=== PATIENT | female | born 1995 | race Caucasian/White ===

== ENCOUNTER 2016-09-07 14:51 | Emergency (ER) | payer MEDICAID, OTHER ==
[2016-09-07] MEDS ORDERED: HYDROcod/ACETAM 5/325 MG TABLET PO STA (15:22)
[2016-09-07] MEDS ORDERED: HYDROcod/ACETAM 5/325 MG TABLET ONE (15:28)
== END 2016-09-07 15:39 | disposition home or self-care (01) ==
DX: K05.20 Aggressive periodontitis, unspecified (principal); F17.200 Nicotine dependence, unspecified, uncomplicated
CPT/HCPCS: 99283; A9270

== ENCOUNTER 2016-09-14 09:31 | Emergency (ER) | payer MEDICAID | END 2016-09-14 11:23 | disposition home or self-care (01) | DX: J40 Bronchitis, not specified as acute or chronic (principal); Z87.09 Personal history of other diseases of the respiratory system; F17.200 Nicotine dependence, unspecified, uncomplicated ==

== ENCOUNTER 2016-11-19 02:02 | Emergency (ER) | payer MEDICAID ==
[2016-11-19] MEDS ORDERED: IBUPROFEN 600 MG TABLET PO STA (02:19)
[2016-11-19] MEDS ORDERED: AMOXICILLIN 250 MG CAPSULE PO STA (02:19)
[2016-11-19] MEDS ORDERED: AMOXICILLIN 250 MG CAPSULE PO ONE (02:20)
[2016-11-19] MEDS ORDERED: IBUPROFEN 600 MG TABLET PO ONE (02:20)
== END 2016-11-19 03:32 | disposition home or self-care (01) ==
DX: H66.93 Otitis media, unspecified, bilateral (principal); R04.2 Hemoptysis; F17.200 Nicotine dependence, unspecified, uncomplicated; Z79.2 Long term (current) use of antibiotics; Z79.51 Long term (current) use of inhaled steroids; Z79.899 Other long term (current) drug therapy
CPT/HCPCS: 71020; 99283; A9270

== ENCOUNTER 2016-12-31 10:27 | Outpatient (CLI) | payer MEDICAID ==
[2016-12-31 12:44] LABS: BASOPHILS # (AUTO) 0.1 10^3/uL (0.0-0.1); BASOPHILS % (AUTO) 0.5 %; EOSINOPHILS # (AUTO) 0.1 10^3/uL (0.0-0.7); EOSINOPHILS % (AUTO) 1.3 %; HCT - HEMATOCRIT 41.9 % (37.0-47.0); HGB - HEMOGLOBIN 14.1 g/dL (12.0-16.0); LYMPHOCYTES # (AUTO) 3.3 10^3/uL (1.5-3.5); MEAN CORPUSCULAR HEMOGLOBIN 32.1 pg (27.0-31.0); MEAN CORPUSCULAR HGB CONC 33.7 g/dL (32.0-36.0); MEAN CORPUSCULAR VOLUME 95.2 fL (81.0-99.0); MEAN PLATELET VOLUME 8.7 fL (7.9-10.8); MONOCYTES # (AUTO) 0.5 10^3/uL (0.0-1.0); MONOCYTES % (AUTO) 4.7 %; NEUTROPHILS # (AUTO) 7.7 10^3/uL (1.5-6.6); NEUTROPHILS % (AUTO) 65.5 %; RED CELL DISTRIBUTION WIDTH 13.1 % (12.0-15.0); UNCORRECTED WHITE BLOOD COUNT 11.7 x10^3/uL; WHITE BLOOD COUNT 11.7 x10^3/uL (4.8-10.8)
[2016-12-31 13:20] LABS: ALBUMIN/GLOBULIN RATIO 1.5 (1.0-2.2); BILIRUBIN,TOTAL 0.5 mg/dL (0.2-1.0); BUN - BLOOD UREA NITROGEN 8 mg/dL (6-20); CALCIUM 9.2 mg/dL (8.5-10.3); CARBON DIOXIDE - CO2 24 mmol/L (21-32); CHLORIDE 108 mmol/L (101-111); CHOL/HDL RATIO 4.3 (<4.4); CHOLESTEROL 164 mg/dL; CREATININE 0.7 mg/dL (0.4-1.0); GFR - MDRD 105 (>89); GLUCOSE 92 mg/dL (70-100); HDL CHOLESTEROL 38 mg/dL; LDL/HDL RATIO 2.9 (<4.4); POTASSIUM 4.1 mmol/L (3.5-5.0); SODIUM 136 mmol/L (135-145); TOTAL PROTEIN 7.1 g/dL (6.7-8.2); TRIGLYCERIDES 72 mg/dL; VLDL CHOLESTEROL 14 mg/dL
== END 2016-12-31 10:28 ==
LOC: LAB.N 10:27
PROVIDERS: ATTEND Family Medicine
DX: Z00.00 Encounter for general adult medical examination without abnormal findings (principal)
CPT/HCPCS: 36415; 80050; 80061

== ENCOUNTER 2017-08-31 10:44 | Outpatient (CLI) | payer MEDICAID ==
--- NOTE | 2017-08-31 11:57 | XRAY Report ---
DATE OF SERVICE: 08/31/2017 TWO VIEW CHEST: 08/31/2017 CLINICAL INDICATION: History of tuberculosis. COMPARISON: 11/19/2016. FINDINGS: Frontal and lateral views of the chest demonstrate a normal cardiac silhouette. The lungs are clear. No effusion or pneumothorax is present. IMPRESSION: NORMAL CHEST. NO EVIDENCE OF ACTIVE TUBERCULOSIS. TD: 08/31/2017 11:57
== END 2017-08-31 10:45 | disposition home or self-care (01) ==
LOC: DI 10:44
PROVIDERS: ATTEND Physician Assistant Medical
DX: Z86.11 Personal history of tuberculosis (principal)
CPT/HCPCS: 71046

== ENCOUNTER 2017-12-23 09:37 | Outpatient (CLI) | payer MEDICAID ==
[2017-12-23 12:42] LABS: BASOPHILS % (AUTO) 0.4 %; EOSINOPHILS % (AUTO) 0.4 %; HGB - HEMOGLOBIN 14.9 g/dL (12.0-16.0); LYMPHOCYTES # (AUTO) 2.2 10^3/uL (1.5-3.5); LYMPHOCYTES % (AUTO) 24.3 %; MEAN CORPUSCULAR HEMOGLOBIN 32.7 pg (27.0-31.0); MEAN CORPUSCULAR HGB CONC 34.8 g/dL (32.0-36.0); MEAN CORPUSCULAR VOLUME 93.9 fL (81.0-99.0); MEAN PLATELET VOLUME 8.9 fL (7.9-10.8); MONOCYTES # (AUTO) 0.8 10^3/uL (0.0-1.0); MONOCYTES % (AUTO) 8.7 %; NEUTROPHILS # (AUTO) 6.1 10^3/uL (1.5-6.6); NEUTROPHILS % (AUTO) 66.2 %; PLT - PLATELET COUNT 221 10^3/uL (130-450); RED BLOOD COUNT 4.56 10^6/uL (4.20-5.40); RED CELL DISTRIBUTION WIDTH 12.5 % (12.0-15.0); WHITE BLOOD COUNT 9.2 x10^3/uL (4.8-10.8)
[2017-12-23 13:01] LABS: ALBUMIN 4.4 g/dL (3.2-5.5); ALBUMIN/GLOBULIN RATIO 1.3 (1.0-2.2); BILIRUBIN,TOTAL 1.3 mg/dL (0.2-1.0); CALCIUM 9.2 mg/dL (8.5-10.3); CREATININE 0.7 mg/dL (0.4-1.0); TOTAL PROTEIN 7.8 g/dL (6.7-8.2)
[2017-12-23 13:14] LABS: THYROID STIMULATING HORMONE 1.8 uIU/mL (0.34-5.60)
[2017-12-23 13:16] LABS: FREE T4 (FREE THYROXINE) 0.93 ng/dL (0.58-1.64)
== END 2017-12-23 09:38 ==
LOC: LAB.N 09:37
PROVIDERS: ATTEND Family Medicine
DX: R53.83 Other fatigue (principal); F33.0 Major depressive disorder, recurrent, mild
CPT/HCPCS: 36415; 80050; 84439

== ENCOUNTER 2017-12-26 14:07 | Emergency (ER) | payer MEDICAID ==
[2017-12-26 15:22] LABS: BILIRUBIN,URINE NEGATIVE (NEGATIVE); GLUCOSE, URINE (UA) NEGATIVE (NEGATIVE); KETONES,URINE (UA) NEGATIVE (NEGATIVE); LEUKOCYTE ESTERASE, URINE NEGATIVE (NEGATIVE); NITRITE,URINE NEGATIVE (NEGATIVE); OCCULT BLOOD,URINE NEGATIVE (NEGATIVE); PROTEIN,URINE NEGATIVE (NEGATIVE); UROBILINOGEN,URINE 0.2 (NORMAL) E.U./dL (NORMAL)
[2017-12-26 15:23] LABS: CLARITY,URINE CLEAR (CLEAR); HCG UR QUAL NEGATIVE
--- NOTE | 2017-12-26 15:53 | ED Physician Documentation ---
History of Present Illness - Stated complaint Stated Complaint: LT SIDE PX - Chief complaint Chief Complaint: Abd Pain - Additonal information Additional information: hx from pt 22 female denies preg has implanted control but thinks it is outdated heavy vag bleed (3 tampons a day) and pelvic cramping like severe menstruation pain, L > R for a month used to be seen at [facility] but no longer on parents [employer] at [facility] Review of Systems GI: reports: Abdominal Pain : reports: Vaginal bleeding. 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 : None HEENT: None Psych: ADD/ADHD Musculoskeletal: None Derm: None - Past Surgical History Past Surgical History: No - Present Medications Home Medications: Ambulatory Orders Medication Instructions Recorded Confirmed Albuterol Sulfate [Proair Hfa 2 puffs IH QID #1 hfa.aer.ad 09/14/16 Inhaler] Azithromycin [Zithromax] 250 mg PO DAILY #6 tablet 09/14/16 Dexamethasone [Decadron] 4 mg PO DAILY #5 tablet 09/14/16 guaiFENesin/CODEINE [Robitussin AC] 10 ml PO Q6H PRN #240 ml 09/14/16 Amoxicillin 1,000 mg PO TID #42 cap 11/19/16 - Allergies Allergies/Adverse Reactions: Allergies Allergy/AdvReac Type Severity Reaction Status Date / Time No Known Drug Allergies Allergy Verified 12/26/17 14:30 - Social History Does the pt smoke?: Yes Smoking Status: Current every day smoker Does the pt drink ETOH?: Yes Does the pt have substance abuse?: No - Immunizations Immunizations are current?: Yes - POLST Patient has POLST: No PD ED PE NORMAL - Vitals Vital signs reviewed: Yes - Cardiac Cardiac: RRR - Respiratory Respiratory: No respiratory distress, Clear bilaterally - Abdomen Abdomen: Soft, Other (midl TTP lower abd L > R no rebound or guarding) - Female Female : Other (pt declined) - Derm Derm: Normal color Results - Vitals Vitals: Vital Signs - 24 hr 12/26/17 14:28 Temperature 36.5 C Heart Rate 90 Respiratory 18 Rate Blood Pressure 133/80 H O2 Saturation 99 Oxygen O2 Source Room air - Labs Labs: Laboratory Tests 12/26/17 14:57 Urine Color YELLOW Urine Clarity CLEAR Urine pH 7.0 Ur Specific [place] 1.020 Urine Protein NEGATIVE Urine Glucose (UA) NEGATIVE Urine Ketones NEGATIVE Urine Occult Blood NEGATIVE Urine Nitrite NEGATIVE Urine Bilirubin NEGATIVE Urine Urobilinogen 0.2 (NORMAL) Ur Leukocyte Esterase NEGATIVE Ur Microscopic Review NOT INDICATED Urine Culture Comments NOT INDICATED Urine HCG, Qual NEGATIVE Departure - Departure Disposition: 01 Home, Self Care Clinical Impression: Dysfunctional uterine bleeding Condition: Good Instructions: ED Bleed Irregular Vaginal Follow-Up: Andres Oliveira MD [Primary Care Provider] - Bella Becerra DO [Provider Admit Priv/Credential] - Comments: The test came back negative. You advises that you are not at risk for STDs We considered doing a sonogram to look for ovarian cysts etc but you did not have enough time today I suspect that the symptoms are due to dysfunctional uterine bleeding as the effect of you outdated control implant wears of Please follow up with the [facility] Return to the ER if worse
[2017-12-26 15:57] VITALS: BP 127/90
== END 2017-12-26 15:58 | disposition home or self-care (01) ==
LOC: ED 14:07
DX: N93.8 Other specified abnormal uterine and vaginal bleeding (principal); F17.200 Nicotine dependence, unspecified, uncomplicated
CPT/HCPCS: 81001; 81003; 81025; 87086; 99282; 99283

== ENCOUNTER → 2018-01-07 | Outpatient (CLI) | payer MEDICAID | LOC: RT.N 10:19 | PROVIDERS: ATTEND Family Medicine | DX: R00.0 Tachycardia, unspecified (principal); F41.1 Generalized anxiety disorder | CPT/HCPCS: 93005 ==

== ENCOUNTER 2018-02-13 03:29 | Emergency (ER) | payer MEDICAID ==
--- NOTE | 2018-02-13 04:09 | ED Physician Documentation ---
PD HPI HEADACHE - Stated complaint Stated Complaint: HEADACHE - Chief complaint Chief Complaint: General - History obtained from History obtained from: Patient - History of Present Illness Timing - onset: Enter time (23:00), Last night Timing - duration: Hours Timing - details: Abrupt onset, Waxing and waning Pain level now: 8 Worst headache ever?: No: Worst headache ever? Location: Global Quality: Throbbing Associated symptoms: Nausea. 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 denies: Loss of vision, Decreased vision GI: reports: Nausea. denies: Abdominal Pain, Vomiting Neurologic: reports: Headache. 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 : None HEENT: None Psych: ADD/ADHD Musculoskeletal: None Derm: None - Past Surgical History Past Surgical History: No - Present Medications Home Medications: Ambulatory Orders Medication Instructions Recorded Confirmed Albuterol Sulfate [Proair Hfa 2 puffs IH QID #1 hfa.aer.ad 09/14/16 Inhaler] Azithromycin [Zithromax] 250 mg PO DAILY #6 tablet 09/14/16 Dexamethasone [Decadron] 4 mg PO DAILY #5 tablet 09/14/16 guaiFENesin/CODEINE [Robitussin AC] 10 ml PO Q6H PRN #240 ml 09/14/16 Amoxicillin 1,000 mg PO TID #42 cap 11/19/16 Ondansetron Odt [Zofran] 4 mg TL Q6H PRN #14 tablet 02/13/18 - Allergies Allergies/Adverse Reactions: Allergies Allergy/AdvReac Type Severity Reaction Status Date / Time No Known Drug Allergies Allergy Verified 02/13/18 03:43 - Social History Does the pt smoke?: Yes Smoking Status: Current every day smoker Does the pt drink ETOH?: Yes Does the pt have substance abuse?: No - Immunizations Immunizations are current?: Yes - POLST Patient has POLST: No PD ED PE NORMAL - Vitals Vital signs reviewed: Yes - General General: Alert and oriented X 3, No acute distress, Well developed/nourished - HEENT HEENT: PERRL, EOMI, Moist mucous membranes - Neck Neck: Supple, no meningeal sign - Neuro Neuro: Alert and oriented X 3, dietary services manager 2-12 intact, No motor deficit, No sensory deficit, Normal speech Eye Opening: Spontaneous Motor: Obeys Commands Verbal: Oriented GCS Score: 15 Results - Vitals Vitals: Vital Signs - 24 hr 02/13/18 02/13/18 02/13/18 03:41 05:20 06:00 Temperature 36.8 C Heart Rate 85 75 Respiratory 17 16 16 Rate Blood Pressure 141/98 H 143/94 H O2 Saturation 96 99 Oxygen O2 Source Room air - Labs Labs: Laboratory Tests 02/13/18 03:40 Ur Specific [place] 1.015 Urine HCG, Qual NEGATIVE PD MEDICAL DECISION MAKING - ED course Complexity details: re-evaluated patient, considered differential, d/w patient ED course: reported minimal improvement after 6mg SQ Imitrex. she requests excedrin, as this typically worked in the past. do not have this medication here, but give tylenol and aspirin, zofran for nausea. she is comfortable being discharged after receiving these meds and reported she had further improvement shortly after they were given - Sepsis Event Vital Signs: Vital Signs - 24 hr 02/13/18 02/13/18 02/13/18 03:41 05:20 06:00 Temperature 36.8 C Heart Rate 85 75 Respiratory 17 16 16 Rate Blood Pressure 141/98 H 143/94 H O2 Saturation 96 99 Oxygen O2 Source Room air Departure - Departure Disposition: 01 Home, Self Care Clinical Impression: Migraine Condition: Good Instructions: ED Headache Migraine Follow-Up: Andres Oliveira MD [Primary Care Provider] - Prescriptions: Ondansetron Odt [Zofran] 4 mg TL Q6H PRN #14 tablet PRN Reason: Nausea / Vomiting Discharge Date/Time: 02/13/18 06:00
[2018-02-13 04:34] LABS: HCG UR QUAL NEGATIVE
[2018-02-13] MEDS: SUMAtriptan 6 MG/0.5 ML VIAL SUBQ STA (04:45)
[2018-02-13 05:22] VITALS: BP 143/94
[2018-02-13] MEDS: ACETAMINOPHEN 325 MG TABLET PO STA ×2 (06:07→06:10)
[2018-02-13] MEDS: ASPIRIN CHEW 81 MG TABLET PO STA (06:07)
[2018-02-13] MEDS: ONDANSETRON ODT 4 MG TABLET TL STA (06:07)
== END 2018-02-13 06:00 | disposition home or self-care (01) ==
LOC: ED 03:29
DX: G43.909 Migraine, unspecified, not intractable, without status migrainosus (principal); F17.200 Nicotine dependence, unspecified, uncomplicated
CPT/HCPCS: 81025; 96372; 99283; 99284; A9270; Q0162

== ENCOUNTER 2018-04-30 10:13 | Emergency (ER) | payer MEDICAID ==
[2018-04-30 10:33] VITALS: BP 122/81
[2018-04-30 10:40] LABS: BILIRUBIN,URINE NEGATIVE (NEGATIVE); GLUCOSE, URINE (UA) NEGATIVE (NEGATIVE); KETONES,URINE (UA) NEGATIVE (NEGATIVE); LEUKOCYTE ESTERASE, URINE NEGATIVE (NEGATIVE); NITRITE,URINE NEGATIVE (NEGATIVE); OCCULT BLOOD,URINE NEGATIVE (NEGATIVE); PROTEIN,URINE NEGATIVE (NEGATIVE); UROBILINOGEN,URINE 0.2 (NORMAL) E.U./dL (NORMAL)
[2018-04-30 10:41] LABS: CLARITY,URINE CLEAR (CLEAR)
[2018-04-30 10:44] LABS: HCG UR QUAL NEGATIVE
--- NOTE | 2018-04-30 11:24 | XRAY Report ---
Reason: TB screen Procedure Date: 04/30/2018 Accession Number: [id number] / [id number] Procedure: XR - Chest 2 View X-Ray CPT Code: 69365 FULL RESULT: EXAM: CHEST RADIOGRAPHY EXAM DATE: 04/30/2018 11:09 AM. CLINICAL HISTORY: TB screen. COMPARISON: CHEST 2 VIEW 08/31/2017 10:49 AM. TECHNIQUE: 2 views. FINDINGS: Lungs/Pleura: No focal opacities evident. No pleural effusion. No pneumothorax. Normal volumes. Mediastinum: Heart and mediastinal contours are unremarkable. Other: None. IMPRESSION: Normal 2-view chest radiography for age and body habitus. Specifically, there is no radiographically apparent evidence of tuberculosis in the chest. RADIA
--- NOTE | 2018-04-30 11:26 | ED Physician Documentation ---
History of Present Illness - Stated complaint Stated Complaint: TB SCREENING - Chief complaint Chief Complaint: General - History obtained from History obtained from: Patient - History of Present Illness Timing: Today - Additonal information Additional information: 22 y/o well female has come to the ED for a CXR to document absence of signs of TB Review of Systems Constitutional: denies: Fever Eyes: denies: Decreased vision Ears: denies: Ear pain Nose: denies: Rhinorrhea / runny nose, Congestion Throat: denies: Sore throat Cardiac: denies: Chest pain / pressure, Palpitations Respiratory: reports: Cough. 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 : None HEENT: None Psych: ADD/ADHD Musculoskeletal: None Derm: None - Past Surgical History Past Surgical History: No - Present Medications Home Medications: Ambulatory Orders Medication Instructions Recorded Confirmed Albuterol Sulfate [Proair Hfa 2 puffs IH QID #1 hfa.aer.ad 09/14/16 Inhaler] Azithromycin [Zithromax] 250 mg PO DAILY #6 tablet 09/14/16 Dexamethasone [Decadron] 4 mg PO DAILY #5 tablet 09/14/16 guaiFENesin/CODEINE [Robitussin AC] 10 ml PO Q6H PRN #240 ml 09/14/16 Amoxicillin 1,000 mg PO TID #42 cap 11/19/16 Ondansetron Odt [Zofran] 4 mg TL Q6H PRN #14 tablet 02/13/18 - Allergies Allergies/Adverse Reactions: Allergies Allergy/AdvReac Type Severity Reaction Status Date / Time No Known Drug Allergies Allergy Verified 02/13/18 03:43 - Social History Does the pt smoke?: Yes Smoking Status: Current every day smoker Does the pt drink ETOH?: Yes Does the pt have substance abuse?: No - Immunizations Immunizations are current?: Yes - POLST Patient has POLST: No PD ED PE NORMAL - Vitals Vital signs reviewed: Yes (hypertensive mild ) - General General: Alert and oriented X 3, No acute distress, Well developed/nourished - HEENT HEENT: Atraumatic, PERRL, EOMI, Ears normal, Moist mucous membranes, Pharynx benign, Dentition benign - Neck Neck: Supple, no meningeal sign, No bony TTP - Cardiac Cardiac: RRR, No murmur - Respiratory Respiratory: No respiratory distress, Clear bilaterally - Abdomen Abdomen: Soft, Non tender - Back Back: No CVA TTP, No spinal TTP - Derm Derm: Normal color, Warm and dry, No rash - Extremities Extremities: No deformity, No edema - Neuro Neuro: Alert and oriented X 3, well drill 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 2-12 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, No motor deficit, No sensory deficit Eye Opening: Spontaneous Motor: Obeys Commands Verbal: Oriented GCS Score: 15 - Psych Psych: Normal mood, Normal affect Results - Vitals Vitals: Vital Signs - 24 hr 04/30/18 10:28 Temperature 36.9 C Heart Rate 95 Respiratory 16 Rate Blood Pressure 122/81 H O2 Saturation 99 Oxygen O2 Source Room air - Labs Labs: Laboratory Tests 04/30/18 10:34 Urine Color YELLOW Urine Clarity CLEAR Urine pH 7.0 Ur Specific [place] 1.020 Urine Protein NEGATIVE Urine Glucose (UA) NEGATIVE Urine Ketones NEGATIVE Urine Occult Blood NEGATIVE Urine Nitrite NEGATIVE Urine Bilirubin NEGATIVE Urine Urobilinogen 0.2 (NORMAL) Ur Leukocyte Esterase NEGATIVE Ur Microscopic Review NOT INDICATED Urine Culture Comments NOT INDICATED Urine HCG, Qual NEGATIVE - Rads (name of study) 2 view chest Radiology: Prelim report reviewed (Impression: Normal two-view chest radiography for age and body habitus. Specifically, there is no radiographically apparent evidence of tuberculosis in the chest.), EMP read indepedently, See rad report PD MEDICAL DECISION MAKING - ED course Complexity details: reviewed results, re-evaluated patient, considered differential, d/w patient, d/w family ED course: 22 y/o well female with no evidence of TB on plain film. - Sepsis Event Vital Signs: Vital Signs - 24 hr 04/30/18 10:28 Temperature 36.9 C Heart Rate 95 Respiratory 16 Rate Blood Pressure 122/81 H O2 Saturation 99 Oxygen O2 Source Room air Departure - Departure Disposition: 01 Home, Self Care Clinical Impression: Well adult exam Condition: Stable Instructions: TB Screening Skin Follow-Up: Andres Oliveira MD [Primary Care Provider] - Comments: Today there is no evidence of TB on your chest X-ray.
== END 2018-04-30 11:43 | disposition home or self-care (01) ==
LOC: ED 10:13
DX: R05 Cough (principal); Z86.11 Personal history of tuberculosis; F17.200 Nicotine dependence, unspecified, uncomplicated
CPT/HCPCS: 71046; 81001; 81003; 81025; 87086; 99282; 99283

== ENCOUNTER 2018-11-03 05:20 | Outpatient (CLI) | payer MEDICAID ==
--- NOTE | 2018-11-03 17:41 | Ultrasound Report ---
Reason: TEST POSITIVE Procedure Date: 11/03/2018 Accession Number: [id number] / [id number] Procedure: US - OB First Trimester CPT Code: FULL RESULT: EXAM: FIRST TRIMESTER OBSTETRIC ULTRASOUND (Less than 11 weeks) EXAM DATE: 11/03/2018 CLINICAL HISTORY: TEST POSITIVE. LMP: 09/23/2018, possibly. COMPARISONS: None. TECHNIQUE: Transabdominal and transvaginal ultrasound examination with static image documentation. CLINICAL DATES: EGA 5 weeks 6 days with VICTOR M 06/30/2019 based on LMP. ASSESSMENT: Gestational Sac: Single intrauterine gestational sac with a mean sac diameter of 7.8 mm corresponds to an estimated gestational age of 4 weeks 5 days with an VICTOR M of 07/07/2019. Embryo: none. Cardiac activity: none. Yolk sac: 1.8 mm, normal. Amniotic fluid: Not applicable. Early placenta: Not applicable. Other: None. MATERNAL STRUCTURES: Uterus: Anteverted. Unremarkable. Cervix: Incidental nabothian cyst noted. No mass. Right Ovary/Adnexa: Unremarkable. The ovary measures 3.9 x 2.7 x 1.3 cm, volume 7.1 cc. Left Ovary/Adnexa: Unremarkable. The ovary measures 3.8 x 1.7 x 2.5 cm, volume 8.4 cc. Free Fluid: Small amount of fluid near the right ovary is noted. Other: None. IMPRESSION: 1. Single intrauterine gestational sac. Based on a mean sac diameter, estimated gestational age is 4 weeks 5 days with an VICTOR M of 07/07/2019. These dates are discordant with dates based upon LMP. Recommend reassigning VICTOR M based on current ultrasound. Recommend follow-up ultrasound to evaluate progression of the . 2. No concerning adnexal lesions. 3. No abnormality explaining the patient's symptoms. RADIA
== END 2018-11-03 05:21 | disposition home or self-care (01) ==
LOC: DI 05:20
PROVIDERS: ATTEND Obstetrics & Gynecology
DX: Z32.01 Encounter for pregnancy test, result positive (principal)
CPT/HCPCS: 76801; 76817

== ENCOUNTER 2018-11-06 12:28 | Outpatient (CLI) | payer MEDICAID | END 2018-11-06 12:29 | disposition home or self-care (01) | LOC: LAB 12:28 | PROVIDERS: ATTEND Obstetrics & Gynecology | DX: O20.0 Threatened abortion (principal) | CPT/HCPCS: 36415; 84702; 86900; 86901 ==

== ENCOUNTER 2018-11-07 03:03 | Emergency (ER) | payer MEDICAID ==
--- NOTE | 2018-11-07 03:20 | ED Physician Documentation ---
PD HPI HEADACHE - Stated complaint Stated Complaint: GENTILE/VOMITING/5WKS PREG - Chief complaint Chief Complaint: General - History obtained from History obtained from: Patient - History of Present Illness Timing - onset: Today Timing - onset during: Light activity Timing - duration: Hours Timing - details: Abrupt onset, Still present Worst headache ever?: No: Worst headache ever? (similar to prior migraines. She would in the past have taken Excedrin Migraine for it but unable to now being . She started with vomiting and was unable to keep Tylenol down. She previously had had Zofran but is out of it at this time.) Quality: Throbbing, Aching Associated symptoms: Nausea, Vomiting. No: Fever, Stiff neck, Weakness, Vision changes (but is light sensitive) Worsened by: Light, Noise Contributing factors: No: Recent illness, Trauma Similar symptoms before: Diagnosis (migraines since childhood, intermittent) Review of Systems Constitutional: denies: Fever, Chills Eyes: reports: Photophobia Nose: denies: Rhinorrhea / runny nose, Congestion Throat: denies: Sore throat Respiratory: denies: Cough GI: reports: Nausea (today), Vomiting. denies: Abdominal Pain, Constipation Skin: denies: Rash, Lesions Neurologic: reports: Headache. 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 : None HEENT: None Psych: ADD/ADHD Musculoskeletal: None Derm: None - Past Surgical History Past Surgical History: No - Present Medications Home Medications: Ambulatory Orders Medication Instructions Recorded Confirmed Albuterol Sulfate [Proair Hfa 2 puffs IH QID #1 hfa.aer.ad 09/14/16 Inhaler] Azithromycin [Zithromax] 250 mg PO DAILY #6 tablet 09/14/16 Dexamethasone [Decadron] 4 mg PO DAILY #5 tablet 09/14/16 guaiFENesin/CODEINE [Robitussin AC] 10 ml PO Q6H PRN #240 ml 09/14/16 Amoxicillin 1,000 mg PO TID #42 cap 11/19/16 Ondansetron Odt [Zofran] 4 mg TL Q6H PRN #14 tablet 02/13/18 Naproxen 500 mg PO BID #20 tablet 11/07/18 Ondansetron Odt [Zofran] 4 mg TL Q6H PRN #20 tablet 11/07/18 - Allergies Allergies/Adverse Reactions: Allergies Allergy/AdvReac Type Severity Reaction Status Date / Time No Known Drug Allergies Allergy Verified 02/13/18 03:43 - Social History Does the pt smoke?: Yes Smoking Status: Current every day smoker Does the pt drink ETOH?: Yes Does the pt have substance abuse?: No - Immunizations Immunizations are current?: Yes - POLST Patient has POLST: No PD ED PE NORMAL - Vitals Vital signs reviewed: Yes - General General: Alert and oriented X 3, Well developed/nourished - Neck Neck: Supple, no meningeal sign, No adenopathy - Cardiac Cardiac: RRR, No murmur - Respiratory Respiratory: Clear bilaterally - Derm Derm: Normal color, Warm and dry - Neuro Neuro: Alert and oriented X 3, No motor deficit, Normal speech Eye Opening: Spontaneous Motor: Obeys Commands Verbal: Oriented GCS Score: 15 Results - Vitals Vitals: Vital Signs - 24 hr 11/07/18 11/07/18 03:10 04:27 Temperature 36.1 C L Heart Rate 95 89 Respiratory 16 18 Rate Blood Pressure 118/94 H 129/57 L O2 Saturation 99 100 Oxygen O2 Source Room air PD MEDICAL DECISION MAKING - ED course Complexity details: re-evaluated patient (improved with IV fluids and meds. ), considered differential (seems like common migraine), d/w patient Departure - Departure Disposition: 01 Home, Self Care Clinical Impression: Migraine headache Qualifiers: Migraine type: without aura Status migrainosus presence: without status migrainosus Intractability: not intractable Qualified Code(s): G43.009 - Migraine without aura, not intractable, without status migrainosus Condition: Stable Record reviewed to determine appropriate education?: Yes Instructions: ED Headache Migraine Prescriptions: Naproxen 500 mg PO BID #20 tablet Ondansetron Odt [Zofran] 4 mg TL Q6H PRN #20 tablet PRN Reason: Nausea / Vomiting Comments: Frequent fluids and stay well-hydrated. Tylenol 4 times a day if needed for pains. Ondansetron if needed for nausea. Add naproxen if needed for headache. Anti-inflammatories are okay in the first 2 trimesters or up to about 30 weeks. Tylenol is good throughout all of . Recheck if repeated symptoms.
[2018-11-07] MEDS ORDERED: METOCLOPRAMIDE 10 MG/2 ML VIAL IVP STA (03:40)
[2018-11-07] MEDS ORDERED: ACETAMINOPHEN 1,000 MG/100 ML 100 ML IV STA (03:40)
[2018-11-07] MEDS ORDERED: KETOROLAC 15 MG/ML VIAL IVP STA (03:40)
[2018-11-07] MEDS ORDERED: diphenhydrAMINE INJ 50 MG/ML VIAL IVP STA (03:40)
[2018-11-07] MEDS ORDERED: SODIUM CHLORIDE 0.9% 1,000 ML IV ONE (03:43)
[2018-11-07 04:54] VITALS: BP 113/58
== END 2018-11-07 04:45 | disposition home or self-care (01) ==
LOC: ED 03:03
DX: O26.891 Other specified pregnancy related conditions, first trimester (principal); G43.009 Migraine without aura, not intractable, without status migrainosus; O99.331 Smoking (tobacco) complicating pregnancy, first trimester; Z3A.01 Less than 8 weeks gestation of pregnancy
CPT/HCPCS: 96374; 96375; 99283; J0131; J1200; J2765

== ENCOUNTER 2018-11-08 09:05 | Outpatient (CLI) | payer MEDICAID | END 2018-11-08 09:06 | disposition home or self-care (01) | LOC: LAB 09:05 | PROVIDERS: ATTEND Obstetrics & Gynecology | DX: O20.0 Threatened abortion (principal) | CPT/HCPCS: 36415; 84702 ==

== ENCOUNTER 2018-11-16 05:17 | Outpatient (CLI) | payer MEDICAID ==
--- NOTE | 2018-11-16 20:50 | Ultrasound Report ---
Reason: THREATENED Procedure Date: 11/16/2018 Accession Number: [id number] / [id number] Procedure: US - OB First Trimester CPT Code: FULL RESULT: EXAM: FIRST TRIMESTER OBSTETRIC ULTRASOUND (Less than 11 weeks) EXAM DATE: 11/16/2018 05:29 AM. CLINICAL HISTORY: THREATENED . LMP: 09/23/2018. COMPARISONS: OB FIRST TRIMESTER 11/03/2018 5:32 AM. TECHNIQUE: Transabdominal and transvaginal ultrasound examination with static image documentation. CLINICAL DATES: EGA 7 weeks 5 days with VICTOR M 06/30/2019 based on LMP. ASSESSMENT: Gestational Sac: Single intrauterine. Embryo: CRL (crown-rump length) 9 mm = 6 weeks 6 days with an VICTOR M of 07/06/2019. Cardiac activity: 141 beats per minute. Yolk sac: 3.3 mm. Amniotic fluid: Not accurately assessed at this gestational age. Early placenta: Not visible at this gestational age. Other: No perigestational fluid collection demonstrated. MATERNAL STRUCTURES: Uterus: Anteverted. Unremarkable. Cervix: Closed. Right Ovary/Adnexa: The ovary measures 3.1 x 1.7 x 4.4 cm, volume 12.2 cc. 1.6 x 1.3 x 1.9 Cm complex right ovarian cyst with debris and mild peripheral flow. No mural nodules or thickened septations. Additional anechoic 1.1 x 1.2 x 1.1 cm right adnexal cyst abutting the right ovary is noted. No concerning features are identified. Left Ovary/Adnexa: The ovary measures 3.6 x 1.4 x 2.6 cm, volume 6.9 cc. Unremarkable. Free Fluid: None. Other: None. IMPRESSION: 1. Single viable intrauterine at EGA 6 weeks 6 days with VICTOR M 07/06/2019 based on crown-rump length, which is concordant with clinical dates. 2. Assigned dating is VICTOR M 7 weeks 5 days based on LMP and first trimester ultrasound. 3. No complications such as subchorionic hemorrhage. 4. 1.9 cm complex right ovarian cyst most compatible with a corpus luteum. 1.2 cm anechoic right paraovarian cyst. Otherwise, both ovaries and adnexa are normal. RADIA
== END 2018-11-16 05:18 | disposition home or self-care (01) ==
LOC: DI 05:17
PROVIDERS: ATTEND Obstetrics & Gynecology
DX: O20.0 Threatened abortion (principal); O34.81 Maternal care for other abnormalities of pelvic organs, first trimester; N83.291 Other ovarian cyst, right side; Z3A.01 Less than 8 weeks gestation of pregnancy
CPT/HCPCS: 76801; 76817

== ENCOUNTER 2018-12-13 12:20 | Outpatient (CLI) | payer MEDICAID | END 2018-12-13 12:21 | disposition EMS.NT | LOC: EMS 12:20 | PROVIDERS: ATTEND Surgery | DX: Z04.1 Encounter for examination and observation following transport accident (principal) ==

== ENCOUNTER 2018-12-13 14:22 | Emergency (ER) | payer MEDICAID ==
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
[2018-12-13] MEDS ORDERED: NAPROXEN 250 MG TABLET PO STA (15:06)
[2018-12-13 15:14] VITALS: BP 117/69
== END 2018-12-13 15:17 | disposition home or self-care (01) ==
LOC: ED 14:22
DX: O99.89 Other specified diseases and conditions complicating pregnancy, childbirth and the puerperium (principal); S16.1XXA Strain of muscle, fascia and tendon at neck level, initial encounter; S30.1XXA Contusion of abdominal wall, initial encounter; V43.52XA Car driver injured in collision with other type car in traffic accident, initial encounter; O99.331 Smoking (tobacco) complicating pregnancy, first trimester; Z3A.11 11 weeks gestation of pregnancy
CPT/HCPCS: 99283; A9270

== ENCOUNTER 2019-01-26 19:36 | Emergency (ER) | payer MEDICAID ==
[2019-01-26 19:57] LABS: BILIRUBIN,URINE NEGATIVE (NEGATIVE); GLUCOSE, URINE (UA) NEGATIVE (NEGATIVE); KETONES,URINE (UA) NEGATIVE (NEGATIVE); LEUKOCYTE ESTERASE, URINE SMALL (NEGATIVE); NITRITE,URINE NEGATIVE (NEGATIVE); OCCULT BLOOD,URINE NEGATIVE (NEGATIVE); PROTEIN,URINE NEGATIVE (NEGATIVE); UROBILINOGEN,URINE 0.2 (NORMAL) E.U./dL (NORMAL)
[2019-01-26 19:59] LABS: CLARITY,URINE CLEAR (CLEAR)
[2019-01-26 20:09] LABS: BASOPHILS % (AUTO) 0.3 %; EOSINOPHILS # (AUTO) 0.1 10^3/uL (0.0-0.7); EOSINOPHILS % (AUTO) 0.6 %; HGB - HEMOGLOBIN 12.1 g/dL (12.0-16.0); LYMPHOCYTES # (AUTO) 3.3 10^3/uL (1.5-3.5); LYMPHOCYTES % (AUTO) 32.5 %; MEAN CORPUSCULAR HEMOGLOBIN 32.9 pg (27.0-31.0); MEAN CORPUSCULAR HGB CONC 34.3 g/dL (32.0-36.0); MEAN CORPUSCULAR VOLUME 95.9 fL (81.0-99.0); MEAN PLATELET VOLUME 10.1 fL (7.9-10.8); MONOCYTES # (AUTO) 0.6 10^3/uL (0.0-1.0); MONOCYTES % (AUTO) 5.9 %; NEUTROPHILS # (AUTO) 6.2 10^3/uL (1.5-6.6); NEUTROPHILS % (AUTO) 60.3 %; PLT - PLATELET COUNT 244 10^3/uL (130-450); RED BLOOD COUNT 3.68 10^6/uL (4.20-5.40); RED CELL DISTRIBUTION WIDTH 12.2 % (12.0-15.0); WHITE BLOOD COUNT 10.2 x10^3/uL (4.8-10.8)
[2019-01-26] MEDS ORDERED: BUTALB/ACETAM/CAFF 50/325/40MG TABLET PO STA (20:13)
--- NOTE | 2019-01-26 20:13 | ED Physician Documentation ---
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 Minimal cramping. No vaginal discharge. Also has a migraine headache. Gets these occasionally. No relief with Naprosyn. No fevers. No neck or back pain. Worse with lights and sounds. 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 SHAKER: None : None HEENT: None Psych: ADD/ADHD Musculoskeletal: None Derm: None - Past Surgical History Past Surgical History: No - Present Medications Home Medications: Ambulatory Orders Medication Instructions Recorded Confirmed Naproxen 500 mg PO BID #20 tablet 12/13/18 Pnv No.95/Ferrous Fum/Folic AC 1 each PO 12/13/18 12/13/18 [ Caplet] Butalb/Acetaminophen/Caffeine 1 cap PO Q8H PRN #7 capsule 01/26/19 [Fioricet 50-300-40 mg Capsule] Nitrofurantoin Monohyd/M-Cryst 100 mg PO BID #10 capsule 01/26/19 [Macrobid 100 mg Capsule] - Allergies Allergies/Adverse Reactions: Allergies Allergy/AdvReac Type Severity Reaction Status Date / Time No Known Drug Allergies Allergy Verified 01/26/19 19:48 - Social History Does the pt smoke?: Yes Smoking Status: Current every day smoker Does the pt drink ETOH?: No Does the pt have substance abuse?: Yes - Immunizations Immunizations are current?: Yes - POLST Patient has POLST: No PD ED PE NORMAL - Vitals Vital signs reviewed: Yes - General General: Alert and oriented X 3, No acute distress, Well developed/nourished - HEENT HEENT: Atraumatic, PERRL, Moist mucous membranes - Neck Neck: Supple, no meningeal sign - Cardiac Cardiac: RRR, Strong equal pulses - Respiratory Respiratory: No respiratory distress, Clear bilaterally - Abdomen Abdomen: Soft, Non tender, Non distended - Back Back: No CVA TTP, No spinal TTP - Derm Derm: Warm and dry, No rash - Extremities Extremities: No edema - Neuro Neuro: Alert and oriented X 3, pallet assembler 2-12 intact, No motor deficit, No sensory deficit, Normal speech Eye Opening: Spontaneous Motor: Obeys Commands Verbal: Oriented GCS Score: 15 - Psych Psych: Normal mood, Normal affect Results - Vitals Vitals: Vital Signs - 24 hr 01/26/19 01/26/19 19:37 21:36 Temperature 36.8 C 36.5 C Heart Rate 91 84 Respiratory 17 16 Rate Blood Pressure 130/76 123/65 O2 Saturation 99 100 Oxygen O2 Source Room air - Labs Labs: Laboratory Tests 01/26/19 01/26/19 01/26/19 19:50 19:59 19:59 WBC 10.2 RBC 3.68 L Hgb 12.1 Hct 35.3 L MCV 95.9 MCH 32.9 H MCHC 34.3 RDW 12.2 Plt Count 244 MPV 10.1 Neut # (Auto) 6.2 Lymph # (Auto) 3.3 Dawes # (Auto) 0.6 Eos # (Auto) 0.1 Baso # (Auto) 0.0 Absolute Nucleated RBC 0.00 Nucleated RBC % 0.0 Sodium 138 Potassium 3.4 L Chloride 105 Carbon Dioxide 22 Anion Gap 11.0 BUN 8 Creatinine 0.4 Estimated GFR (MDRD) 196 Glucose 80 Calcium 9.5 Urine Color YELLOW Urine Clarity CLEAR Urine pH 7.0 Ur Specific [place] <=1.005 Urine Protein NEGATIVE Urine Glucose (UA) NEGATIVE Urine Ketones NEGATIVE Urine Occult Blood NEGATIVE Urine Nitrite NEGATIVE Urine Bilirubin NEGATIVE Urine Urobilinogen 0.2 (NORMAL) Ur Leukocyte Esterase SMALL H Urine RBC None Seen Urine WBC 4-5 Ur Squamous Epith Cells FEW Squamous Urine Bacteria Rare Ur Microscopic Review INDICATED Urine Culture Comments INDICATED - Rads (name of study) OB ultrasound Radiology: Prelim report reviewed, EMP read contemporaneously, See rad report ([place] live intrauterine with gestational age 17 weeks 0 days based on LMP. 2. Estimated weight is within expected limits for assigned dating. 3. Posterior fundal placenta without evidence of hemorrhage. 4. Amniotic fluid volume low normal with maximum volume pocket 2.3 cm. 5. Cervix long and closed. ) PD MEDICAL DECISION MAKING - ED course Complexity details: reviewed results, re-evaluated patient, considered differential, d/w patient ED course: No acute abnormality on ultrasound. Does have a UTI and will treat for this. Headache resolved with Fioricet. She is well-appearing, nontoxic. Afebrile. Patient counseled regarding signs and symptoms for which I believe and urgent re-evaluation would be necessary. Patient with good understanding of and agreement to plan and is comfortable going home at this time This document was made in part using voice recognition software. While efforts are made to proofread this document, sound alike and grammatical errors may occur. Departure - Departure Disposition: 01 Home, Self Care Clinical Impression: Vaginal bleeding before 22 weeks gestation Migraine Qualifiers: Migraine type: unspecified Status migrainosus presence: without status migrainosus Intractability: not intractable Qualified Code(s): G43.909 - Migraine, unspecified, not intractable, without status migrainosus Urinary tract infection Qualifiers: Urinary tract infection type: acute cystitis Hematuria presence: without hematuria Qualified Code(s): N30.00 - Acute cystitis without hematuria Condition: Good Instructions: ED UTI Cystitis Female, ED Preg Established Normal Sxs Follow-Up: Kitty Bess LMW [Physician No Access] - Within 1 week Prescriptions: Butalb/Acetaminophen/Caffeine [Fioricet 50-300-40 mg Capsule] 1 cap PO Q8H PRN #7 capsule PRN Reason: migraine Nitrofurantoin Monohyd/M-Cryst [Macrobid 100 mg Capsule] 100 mg PO BID #10 capsule Comments: Take all antibiotics until gone. Return if you worsen. Follow-up with your doctor for further care. Use the Fioricet sparingly while you are . Your ultrasound is normal tonight. Discharge Date/Time: 01/26/19 21:43
[2019-01-26 20:16] LABS: CALCIUM 9.5 mg/dL (8.5-10.3); CREATININE 0.4 mg/dL (0.4-1.0)
[2019-01-26 20:23] LABS: BACTERIA,URINE Rare /HPF (None Seen); RBC,URINE None Seen /HPF (0-5); SQUAMOUS EPITHELIAL CELL,UR FEW Squamous (<= Few)
[2019-01-26] MEDS ORDERED: NITROFURANTOIN MACRO 100 MG CAPSULE PO STA (21:26)
[2019-01-26 21:37] VITALS: BP 123/65
--- NOTE | 2019-01-26 21:41 | Ultrasound Report ---
Reason: 17 weeks preg. vag bleeding Procedure Date: 01/26/2019 Accession Number: [id number] / [id number] Procedure: US - OB Limited CPT Code: FULL RESULT: EXAM: COMPLETE OBSTETRICAL ULTRASOUND EXAM DATE: 01/26/2019 09:07 PM. CLINICAL HISTORY: 23-year-old female 17 weeks with vaginal bleeding COMPARISON: OB FIRST TRIMESTER 11/16/2018 5:29 AM OB FIRST TRIMESTER 11/03/2018 5:32 AM. TECHNIQUE: Real-time sonographic evaluation of the fetus performed by the loader. Multiple software support representative static images were saved for review. DATING: Established EGA 17 weeks 0 days with VICTOR M 07/06/2019 based on LMP. EGA 16 weeks 6 days with VICTOR M 07/07/2019 based on ultrasound 11/03/2018. EGA 17 weeks 0 days with VICTOR M 07/06/2019 based on ultrasound 11/16/2018. EGA 17 weeks 1 day with VICTOR M 07/05/2019 based on the current ultrasound. GENERAL EVALUATION [place] . Cardiac activity: 149 bpm. movement: Visualized. Presentation: Breech. Placenta: Posterior fundal position. Umbilical cord: Not assessed. Amniotic fluid: Low normal. MVP 2.3 cm. BIOMETRY Bi-Parietal Diameter (BPD): 3.5 cm, 16 weeks 5 days Head Circumference (HC): 13.8 cm, 17 weeks 2 days Abdominal Circumference (AC): 10.9 cm, 16 weeks 6 days Femur Length (FL): 2.3 cm, 16 weeks 6 days Estimated Weight: 171 g, 34th percentile for 17 weeks 0 days. ANATOMY Not assessed. MATERNAL STRUCTURES Uterus: Unremarkable. Cervix: Long and closed. Right ovary: Not identified. Left ovary: Not identified. Free fluid: Not identified. IMPRESSION: 1. [place] live intrauterine with gestational age 17 weeks 0 days based on LMP. 2. Estimated weight is within expected limits for assigned dating. 3. Posterior fundal placenta without evidence of hemorrhage. 4. Amniotic fluid volume low normal with maximum volume pocket 2.3 cm. 5. Cervix long and closed. RADIA
== END 2019-01-26 21:43 | disposition home or self-care (01) ==
LOC: ED 19:36
DX: O20.9 Hemorrhage in early pregnancy, unspecified (principal); O23.12 Infections of bladder in pregnancy, second trimester; O99.352 Diseases of the nervous system complicating pregnancy, second trimester; G43.909 Migraine, unspecified, not intractable, without status migrainosus; O99.332 Smoking (tobacco) complicating pregnancy, second trimester; Z3A.17 17 weeks gestation of pregnancy
CPT/HCPCS: 36415; 76815; 80048; 81001; 85025; 87086; 99283; A9270; 81003

== ENCOUNTER 2019-06-21 03:30 | Emergency (ER) | payer MEDICAID ==
--- NOTE | 2019-06-21 04:02 | ED Physician Documentation ---
PD HPI HEADACHE - Stated complaint Stated Complaint: GENTILE/38WKS PREG - Chief complaint Chief Complaint: Neuro - History obtained from History obtained from: Patient - History of Present Illness Timing - onset: Enter time (20:00), Today Timing - onset during: Rest Timing - details: Abrupt onset, Still present (nearly resolved), Waxing and waning Pain level max: 6 Pain level now: 2 Worst headache ever?: No: Worst headache ever? Location: Front, Back, Left Quality: Throbbing Associated symptoms: No: Fever, Stiff neck, Nausea, Vomiting, Weakness, Numbness, Syncope, Seizure, Eye pain, Vision changes Improved by: Dark room Worsened by: Light Similar symptoms before: Diagnosis (similar to previous migraine headaches) Recently seen: Not recently seen - Additional information Additional information: c/o left-sided headache c/w previous migraine headaches. she is 38 weeks and thus didnt want to take NSAIDs. however, she did take tylenol and says her headache has already nearly resolved by the time of this evaluation. she says she was worried her headache in late could be preeclampsia. 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 : None HEENT: None Psych: ADD/ADHD Musculoskeletal: None Derm: None - Past Surgical History Past Surgical History: No - Present Medications Home Medications: Ambulatory Orders Medication Instructions Recorded Confirmed Naproxen 500 mg PO BID #20 tablet 12/13/18 Pnv No.95/Ferrous Fum/Folic AC 1 each PO 12/13/18 12/13/18 [ Caplet] Butalb/Acetaminophen/Caffeine 1 cap PO Q8H PRN #7 capsule 01/26/19 [Fioricet 50-300-40 mg Capsule] Nitrofurantoin Monohyd/M-Cryst 100 mg PO BID #10 capsule 01/26/19 [Macrobid 100 mg Capsule] - Allergies Allergies/Adverse Reactions: Allergies Allergy/AdvReac Type Severity Reaction Status Date / Time No Known Drug Allergies Allergy Verified 06/21/19 03:39 - Social History Does the pt smoke?: Yes Smoking Status: Current every day smoker Does the pt drink ETOH?: No Does the pt have substance abuse?: Yes - Immunizations Immunizations are current?: Yes - POLST Patient has POLST: No PD ED PE NORMAL - Vitals Vital signs reviewed: Yes - General General: Alert and oriented X 3, No acute distress, Well developed/nourished - HEENT HEENT: PERRL, EOMI - Cardiac Cardiac: RRR, No murmur - Respiratory Respiratory: No respiratory distress, Clear bilaterally - Abdomen Abdomen: Soft, Non distended, Other (appropriately gravid) - Extremities Extremities: No edema - Neuro Neuro: Alert and oriented X 3, email marketing coordinator 2-12 intact, No motor deficit, No sensory deficit, Normal speech Results - Vitals Vitals: Oxygen O2 Source Room air PD MEDICAL DECISION MAKING - ED course Complexity details: considered differential, d/w patient ED course: normal blood pressure and headache nearly resolved with tylenol. denies abdominal pain, peripheral or generalized edema. presentation and findings are thus not c/w preeclampsia Departure - Departure Disposition: 01 Home, Self Care Clinical Impression: Headache, Condition: Good Instructions: ED Headache Migraine Discharge Date/Time: 06/21/19 04:45
[2019-06-21 04:45] VITALS: BP 115/61
== END 2019-06-21 04:45 | disposition home or self-care (01) ==
LOC: ED 03:30
DX: O99.89 Other specified diseases and conditions complicating pregnancy, childbirth and the puerperium (principal); R51 Headache; F17.200 Nicotine dependence, unspecified, uncomplicated; Z3A.38 38 weeks gestation of pregnancy
CPT/HCPCS: 99282; 99284

== ENCOUNTER 2019-06-30 02:48 | Inpatient (IN) | payer MEDICAID ==
[2019-06-30] MEDS ORDERED: LACTATED RINGERS 1,000 ML IV ONE (03:02)
[2019-06-30] MEDS ORDERED: OXYTOCIN 10 UNIT/ML VIAL IM ONE (03:17)
[2019-06-30] MEDS ORDERED: SODIUM CHLORIDE FLUSH 0.9% 10 ML SYRINGE IVP PRN (03:22)
[2019-06-30] MEDS ORDERED: fentaNYL 100 MCG/2 ML VIAL IVP SCH (03:34)
[2019-06-30 03:54] LABS: BASOPHILS # (AUTO) 0.1 10^3/uL (0.0-0.1); BASOPHILS % (AUTO) 0.4 %; EOSINOPHILS % (AUTO) 0.3 %; HGB - HEMOGLOBIN 11.6 g/dL (12.0-16.0); LYMPHOCYTES # (AUTO) 2.7 10^3/uL (1.5-3.5); LYMPHOCYTES % (AUTO) 17.6 %; MEAN CORPUSCULAR HEMOGLOBIN 33.5 pg (27.0-31.0); MEAN CORPUSCULAR HGB CONC 34.3 g/dL (32.0-36.0); MEAN CORPUSCULAR VOLUME 97.7 fL (81.0-99.0); MEAN PLATELET VOLUME 10.3 fL (7.9-10.8); MONOCYTES # (AUTO) 0.8 10^3/uL (0.0-1.0); MONOCYTES % (AUTO) 5.1 %; NEUTROPHILS # (AUTO) 11.7 10^3/uL (1.5-6.6); NEUTROPHILS % (AUTO) 75.9 %; PLT - PLATELET COUNT 292 10^3/uL (130-450); RED BLOOD COUNT 3.46 10^6/uL (4.20-5.40); RED CELL DISTRIBUTION WIDTH 13.4 % (12.0-15.0); WHITE BLOOD COUNT 15.4 x10^3/uL (4.8-10.8)
[2019-06-30] MEDS: LACTATED RINGERS 1,000 ML IV SCH ×2 (04:00→14:20)
[2019-06-30] MEDS: OXYTOCIN/DEXTROSE 5 % 30 UNIT/500 ML BAG IV PRN ×2 (04:00→05:18)
--- NOTE | 2019-06-30 04:17 | HISTORY & PHYSICAL EXAMINATION ---
Admit History - : 2 Parity: 1 Care: positive: Other Risk/History: positive: None Smoking Status: Current every day smoker - Mother's Labs GBS: positive: Group B Strep Positive - Other Maternal History Other Maternal History: ID: Patient is a 23 yo at 39w0d with reported VICTOR M of 07/07/19 who presented in labor and had a precipitous delivery. HPI: Toya is a patient of Kitty Bess LM, of [facility]. has been uncomplicated per patient report other than being culture positive for GBS. She had presented in labor to [facility] at about 12 am and was 2 cm. She was sent home. At home, her contractions worsened and she presented to [facility] with plan for epidural. She was 7 cm at presentation. Spontaneous rupture of membranes occurred shortly after presentation. She progressed rapidly to complete dilation and delivered prior to placement of IVs or completion of intake. 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 Medically uncomplicated. One prior vaginal delivery, vacuum assisted, after 6 hours of labor. PNL not currently available. Patient reports A positive blood type. PMH: none PSH: none OBHX: G2 now P2 Denies STIs/abnl pap smears (oral HSV) Q3 month menses SOC HX: Lives in [place] with , daughter, and father JOHNATHON T: none E: none D: none MEDS: none ALL: NKDA Meds/Allgy - Home Medications Home Medications: Ambulatory Orders Medication Instructions Recorded Confirmed Naproxen 500 mg PO BID #20 tablet 12/13/18 Pnv No.95/Ferrous Fum/Folic AC 1 each PO 12/13/18 12/13/18 [ Caplet] Butalb/Acetaminophen/Caffeine 1 cap PO Q8H PRN #7 capsule 01/26/19 [Fioricet 50-300-40 mg Capsule] Nitrofurantoin Monohyd/M-Cryst 100 mg PO BID #10 capsule 01/26/19 [Macrobid 100 mg Capsule] - Allergies Allergies/Adverse Reactions: Allergies Allergy/AdvReac Type Severity Reaction Status Date / Time No Known Drug Allergies Allergy Verified 06/21/19 03:39 Review of Systems - Other Findings Other Findings: As per HPI, otherwise remaining systems are negative. Physical - Monitoring Heart Rate Baseline: 125 Strip Review: positive: Category I - Presentation Presentation: positive: Vertex - Vaginal Exam Membranes: positive: Membranes ruptured Dilation (in cm): 7 Effacement (%): 100 Station: positive: Cervical Position: positive: Anterior - Speculum Exam Speculum Exam Performed: positive: No Findings: positive: Gross leak - Other Notes Labor Progress Note/Additional Text: Precipitous delivery after Cat I tracing Plan for Labor - Plan For Labor Plan for Labor: LABOR: Patient delivered spontaneously shortly after presentation -Unmedicated delivery -Medicall uncomplicated -GBS positive with inadequate ppx. Will be observed for 48 hours or per Pediatrics recommendation In-patient care
[2019-06-30] MEDS ORDERED: METHYLERGONOVINE 0.2 MG/ML AMP IM PRN (04:22)
[2019-06-30] MEDS ORDERED: SIMETHICONE CHEW 80 MG TABLET PO PRN (04:22)
[2019-06-30] MEDS ORDERED: HYDROCORTISONE 1% CREAM 28 GM TUBE PR PRN (04:22)
[2019-06-30] MEDS ORDERED: CARBOPROST TROMETHAMINE 250 MCG/ML AMP IM PRN (04:22)
--- NOTE | 2019-06-30 04:32 | DELIVERY NOTE ---
Delivery Note - Infant Delivery Method Infant Delivery Method: positive: Spontaneous vaginal delivery - Nuchal Cord Nuchal Cord: positive: None - Amniotic Fluid Description Amniotic Fluid Description: positive: Clear - Laceration Laceration: positive: 1st degree - Suture Suture Type: positive: Vicryl Suture Size: positive: 3-0 - Delivery Outcome Delivery Outcome: positive: Livebirth - [place]: positive: Placed in direct skin contact with mother, Stimulated, Warmed, [place] used [place]im sex: positive: Male - Placenta Placenta: positive: Intact, Spontaneous, Expressed - Estimated Blood Loss Estimated Blood Loss (in cc): 100 - Post Delivery Events Post Delivery Events: positive: No post delivery events - Delivery Comments (Free Text/Narrative) Delivery Comments (Free Text/Narrative): STAGE I: Patient is a 23 yo at 39w with reported VICTOR M of 07/07/19 who prese nted in active labor at 7 cm dilation. Followed by [facility], had been 2 cm dilation at approximately 12 am. Sent home to labor at home and pain became unbearable. Presented to [facility] for epidural. Spontaneous rupture of membranes shortly after presentation with rapid progression to complete dilation. GBS positive, did not initiate prophylaxis due to precipitous delivery. Category I tracing with EFM 125. No anesthesia. STAGE II: Patient pushed well for less than one contraction to delivery a viable male infant in INDER presentation. Shoulders delivered easily with left shoulder anterior. Partial compound presentation of right hand/arm. No nuchal cord. was delivered to maternal chest. Delayed cord clamping. After cord stopped pulsations, it was clamped x2 and cut. Apgars were 7/8, weight pending. STAGE III: Placenta delivered spontaneously. It was examined and found to be intact. Examination of the perineum revealed a midline 1st degree laceration that was repaired with 3-0 Vicryl in the usual sterile fashion. A total of 15 cc of 1% lidocaine administered for local anesthetic. EBL 100 cc. Patient received 10 units IM pitocin after delivery for attempts at active management of 3rd stage.
[2019-06-30] MEDS: ACETAMINOPHEN 500 MG TABLET PO PRN ×2 (07:46→20:23)
[2019-06-30] MEDS: DOCUSATE SODIUM 100 MG CAPSULE PO PRN (07:47)
[2019-06-30] MEDS: IBUPROFEN 600 MG TABLET PO PRN ×3 (07:47→20:24)
[2019-06-30] MEDS: SODIUM CHLORIDE FLUSH 0.9% 10 ML SYRINGE IVP SCH (14:20)
[2019-07-01] MEDS: IBUPROFEN 600 MG TABLET PO PRN ×2 (03:24→12:24)
[2019-07-01] MEDS: SODIUM CHLORIDE FLUSH 0.9% 10 ML SYRINGE IVP SCH ×2 (09:08→09:10)
[2019-07-01] MEDS: LACTATED RINGERS 1,000 ML IV SCH ×2 (09:08→09:10)
[2019-07-01] MEDS: ACETAMINOPHEN 500 MG TABLET PO PRN (12:24)
[2019-07-01] MEDS: DOCUSATE SODIUM 100 MG CAPSULE PO PRN (15:41)
--- NOTE | 2019-07-01 17:43 | PROVIDER PROGRESS NOTE ---
Subjective - Prog Note Date Prog Note Date: 07/01/19 Prog Note Time: 08:30 - Subjective Pt reports feeling: Improved Subjective: Patient is doing quite well. Up and ambulating. Tolerating po. Pain well managed with ibuprofen. Voiding without difficulty. BF going well Objective - Vital Signs/Intake & Output Vital Signs: Vital Signs x48h Temp Pulse Resp BP Pulse Ox 07/01/19 12:31 97.7 F 77 19 109/73 100 Intake & Output: Intake & Output 06/28/19 06/29/19 06/30/19 07/01/19 23:59 23:59 23:59 23:59 Intake Total 2443.0 Output Total 700 Balance 1743.0 - Objective General Appearance: positive: No acute distress Respiratory: positive: No respiratory distress, Breath sounds nml Cardiovascular: positive: Regular rate & rhythm Abdomen: positive: Non-tender, Other (FF below umbi) Skin: positive: Color nml Extremities: positive: Non-tender, No pedal edema Neurologic/Psychiatric: positive: Oriented x3 - Lab Results Fish Bones: 06/30/19 03:35 Assessment/Plan - Problem List (1) Vaginal delivery Impression: PPD#1 s/p precipitous Doing well Routine pp care Under 48 hrs observation d/t inadequate GBS ppx Cleared for discharge when infant is cleared Anticipate DC home in am Patient declines DC meds
[2019-07-02] MEDS: IBUPROFEN 600 MG TABLET PO PRN ×2 (00:28→08:58)
[2019-07-02] MEDS: ACETAMINOPHEN 500 MG TABLET PO PRN ×2 (00:28→08:58)
[2019-07-02] MEDS: DOCUSATE SODIUM 100 MG CAPSULE PO PRN (07:59)
[2019-07-02 08:09] VITALS: BP 113/63
--- NOTE | 2019-07-02 08:35 | PROVIDER PROGRESS NOTE ---
Subjective - Prog Note Date Prog Note Date: 07/02/19 Prog Note Time: 08:33 - Subjective Subjective: The patient is doing very well this morning. She is breast-feeding without difficulty. She states her lochia is light.She is without any complaint. Objective - Vital Signs/Intake & Output Vital Signs: Vital Signs x48h Temp Pulse Resp BP Pulse Ox 07/02/19 08:09 36.6 C 69 19 113/63 100 Intake & Output: Intake & Output 06/29/19 06/30/19 07/01/19 07/02/19 23:59 23:59 23:59 23:59 Intake Total 2443.0 Output Total 700 Balance 1743.0 - Lab Results Fish Bones: 06/30/19 03:35 - Other Results/Comments Other Results/Comments: Abdomen: The abdomen is soft, pliable and non-tender. The uterus is firm and nontender 2 fingerbreadths below the umbilicus. Laceration: Laceration is clean and dry without infection. It is well approximated. No edema is appreciated. Assessment/Plan - Problem List (1) Vaginal delivery Impression: Term vaginal delivery Plan:The patient will be discharged home. She was discharged home with both written and verbal instructions such as: 1. No lifting, tampons douching or intercourse. 2. She is to report any temperatures greater than 100.4 or heavy vaginal bleeding 3. She is to continue her vitamins and increase her fluids 4. She is to use ibuprofen 600 mg p.o. 3 times daily PRN for pain. 5. She is not to drive a car for the next 2 weeks 6. As long as she does well she will be seen in the office in 1 week for her initial visit.She is unsure whether she is going to follow-up with us or with her adobe cq developer. She will make that decision on her own over the weekend.
--- NOTE | 2019-07-02 09:22 | DISCHARGE SUMMARY ---
Physician: Eduardo Galarza DO DATE OF ADMISSION: 06/30/2019 DATE OF DISCHARGE: 07/02/2019 ADMITTING DIAGNOSES 1. Intrauterine at 39 weeks' gestation. 2. Active labor. DISCHARGE DIAGNOSES 1. Delivery at 39 weeks' gestation. 2. First-degree perineal laceration. 3. Precipitous delivery. PROCEDURES 1. Spontaneous assisted vaginal delivery. 2. Repair of laceration. LABORATORIES: There are no laboratories to report. HOSPITAL COURSE: [facility] the ear ly morning hours of 06/30/2019. She is a 2, para 1 and had an VICTOR M of 07/07/2019, making her approximately 39 weeks' gestation. She had been followed by Kitty Bess LM of the [facility]. She had presented in labor at midnight to the center in [place] and was found to be 2 cm and was sent home. As soon as she got home, her contractions worsened and she presented to the [facility] and was found to be 7 cm. Spontaneous rupture of membranes then occur red and she rapidly went to complete dilatation and had a rapid delivery. One is referred to the danielle castro note for full details. She was GBS positive and had no ability to have intrapartum IV antibiot ics due to the precipitous delivery. On her first day, she was doing quite well. She was without difficulty. She was ambulating well and tolerating diet well. Vital signs we re stable. She was afebrile. The uterus was firm and nontender. Her lochia was light. She was jeanette astfeeding without difficulty. On her second day, she continued to do quite well. Lochia was light. Uterus was firm and nontender, 2 fingerbreadths below the umbilicus. The laceration was clean and dry and well approximated without any signs of infection. No edema was appreciated. It w as felt patient was stable and could be safely discharged to home. DISCHARGE INSTRUCTIONS Patient discharged home with written and verbal instructions including such things as 1. She is to forego any lifting, tampons, douching or intercourse. 2. She is to report any temperature greater 100.4 or heavy vaginal bleeding or signs of infection at the laceration site. 3. She is to continue her vitamins and increase her fluids. 4. She is to use ibuprofen 600 mg p.o. 3 times a day as needed for pain. 5. She is not to drive a car for the next 2 weeks. 6. She may take a shower or tub bath. 7. As long as she does well, she will need to be seen for an evaluation in 1 week for her initial po stpartum visit. She is unsure whether she wants to be seen by Dr. 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 She is going to make that decision over the weekend. If she wishes to see us, she is going to call our office on Thursday to make an appointment to see Dr. Rosales in 1 week. TD: 07/02/2019 08:44
--- NOTE | 2019-07-02 11:42 | Labor Flowsheet ---
Labor Flowsheet Datetime Report Generated by CPN: 07/02/2019 11:41 Datetime: 07/02/2019 08:01 VITAL SIGNS NBP Sys/Emily/Mean (mmHg): 113 : 63 : 75 Pulse: 76 COMMUNICATION LaborFlag: Labor Datetime: 07/01/2019 08:09 SpO2 (%): 100 Datetime: 06/30/2019 05:42 VAGINAL EXAM Membranes Ruptured Date/Time: 06/30/2019 03:14 Membranes Rupture Method: Spontaneous Amniotic Fluid Color: Clear Datetime: 06/30/2019 03:50 Stage of : Labor
== END 2019-07-02 11:11 | disposition home or self-care (01) | DRG 807 ==
LOC: WFO 02:48 → FBP 02:49 → WFO 03:21 → FBP 03:22 → UNDOADMIN 03:23 → FBP 03:28
PROVIDERS: ADMIT Obstetrics & Gynecology; ATTEND Obstetrics & Gynecology
PROC: 10E0XZZ Delivery of Products of Conception, External Approach (ICD-10-PCS; principal; 2019-06-30)
PROC: 0HQ9XZZ Repair Perineum Skin, External Approach (ICD-10-PCS; 2019-06-30)
DX: O99.824 Streptococcus B carrier state complicating childbirth (principal); Z37.0 Single live birth; O62.3 Precipitate labor; O70.0 First degree perineal laceration during delivery; O32.6XX0 Maternal care for compound presentation, not applicable or unspecified; O99.334 Smoking (tobacco) complicating childbirth; Z3A.39 39 weeks gestation of pregnancy
CPT/HCPCS: 85025; A9270; J7120

== ENCOUNTER 2020-08-22 21:02 | Outpatient (CLI) | payer MEDICAID ==
[2020-08-23 00:44] LABS: CANDIDA GROUP DNA POSITIVE (NEGATIVE); CANDIDA KRUSEI DNA NEGATIVE (NEGATIVE); TRICHOMONAS VAGINALIS DNA NEGATIVE (NEGATIVE)
== END 2020-08-22 21:03 | disposition home or self-care (01) ==
LOC: LAB 21:02
PROVIDERS: ATTEND Obstetrics & Gynecology
DX: N89.8 Other specified noninflammatory disorders of vagina (principal)
CPT/HCPCS: 87661; 87801

== ENCOUNTER 2020-10-17 09:41 | Emergency (ER) | payer MEDICAID ==
[2020-10-17 09:46] VITALS: BP 168/75
--- NOTE | 2020-10-17 10:25 | ED Physician Documentation ---
History of Present Illness - Stated complaint Stated Complaint: HIP PX - Chief complaint Chief Complaint: Ext Problem - History obtained from History obtained from: Patient - Additonal information Additional information: 25-year-old woman with history of hip problems during presents with left hip pain sudden in onset after twisting it this morning while moving suddenly. She states that the pain is constant, aching, radiating down to the knee on the outer part of the leg, gradually improving to the point that it is mild now, worse with ambulation. She denies numbness or weakness, fever or back pain or urinary symptoms. 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: None : None HEENT: None Psych: ADD/ADHD Musculoskeletal: None Derm: None - Past Surgical History Past Surgical History: No - Present Medications Home Medications: Ambulatory Orders Medication Instructions Recorded Confirmed No Known Home Medications 10/17/20 10/17/20 - Allergies Allergies/Adverse Reactions: Allergies Allergy/AdvReac Type Severity Reaction Status Date / Time No Known Drug Allergies Allergy Verified 10/17/20 09:43 - Social History Does the pt smoke?: Yes Smoking Status: Current every day smoker Does the pt drink ETOH?: No Does the pt have substance abuse?: Yes - Immunizations Immunizations are current?: Yes - POLST Patient has POLST: No PD ED PE NORMAL - Vitals Vital signs reviewed: Yes - General General: Alert and oriented X 3, No acute distress, Well developed/nourished - HEENT HEENT: Atraumatic, PERRL, EOMI - Neck Neck: Supple, no meningeal sign - Extremities Extremities: No deformity, No tenderness to palpate, Normal ROM s pain, Other (ambulatory without difficulty. 2+ DP pulses BL LE. normal sensation) - Neuro Neuro: Alert and oriented X 3, No motor deficit, No sensory deficit, Other (normal ambulation) Results - Vitals Vitals: Vital Signs - 24 hr 10/17/20 09:44 Temperature 37.0 C Heart Rate 94 Respiratory 18 Rate Blood Pressure 168/75 H O2 Saturation 99 Oxygen O2 Source Room air PD MEDICAL DECISION MAKING - ED course ED course: 25-year-old woman presented with left hip pain, likely muscle strain after twisting this morning. It is rapidly improving here in the emergency department and she is declining pain medication. She also declined x-ray after we discussed risks and benefits. Patient will follow up with her primary doctor. Return precautions discussed. Departure - Departure Disposition: 01 Home, Self Care Clinical Impression: Hip pain, left Condition: Good Instructions: ED RICE, ED Strain Muscle Ext Comments: You were seen in the emergency department for left hip pain. On examination it appears that there are no broken bones or serious injuries. Please use conservative measures as we discussed to help treat the pain and get lots of rest. Return to the emergency department if you develop any new or worsening symptoms or other concerns. Follow-up with your primary doctor.
== END 2020-10-17 10:28 | disposition home or self-care (01) ==
LOC: ED 09:41
DX: M25.552 Pain in left hip (principal); F17.200 Nicotine dependence, unspecified, uncomplicated
CPT/HCPCS: 99283; 99284

== ENCOUNTER 2020-10-17 15:54 | Emergency (ER) | payer MEDICAID ==
[2020-10-17] MEDS ORDERED: KETOROLAC 60 MG/2 ML VIAL IM STA (16:50)
--- NOTE | 2020-10-17 16:51 | ED Physician Documentation ---
History of Present Illness - Stated complaint Stated Complaint: LT HIP PX - Chief complaint Chief Complaint: Ext Problem - History obtained from History obtained from: Patient - Additonal information Additional information: 25-year-old woman presents a second time today with left hip pain, stating that the symptomatic care she received here helped minimally but then that the pain returned and got worse when she went home and was walking around taking care of her kids. She is still declining any numbness or weakness but is having severe pain with ambulation. She did drive herself and states that she is unable to have anyone pick her up. 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 : None HEENT: None Psych: ADD/ADHD Musculoskeletal: None Derm: None - Past Surgical History Past Surgical History: No - Present Medications Home Medications: Ambulatory Orders Medication Instructions Recorded Confirmed Methocarbamol [Robaxin-750] 750 mg PO Q6H PRN #10 tablet 10/17/20 - Allergies Allergies/Adverse Reactions: Allergies Allergy/AdvReac Type Severity Reaction Status Date / Time No Known Drug Allergies Allergy Verified 10/17/20 16:00 - Social History Does the pt smoke?: Yes Smoking Status: Current every day smoker Does the pt drink ETOH?: No Does the pt have substance abuse?: Yes - Immunizations Immunizations are current?: Yes - POLST Patient has POLST: No PD ED PE NORMAL - Vitals Vital signs reviewed: Yes - General General: Alert and oriented X 3, No acute distress, Well developed/nourished - HEENT HEENT: Atraumatic, PERRL, EOMI - Extremities Extremities: No deformity, Other (L hip tender with ROM. 2+ DP pulses. normal sensation, strength cap refill in BL LE. ) - Neuro Neuro: Alert and oriented X 3, No motor deficit, No sensory deficit Results - Vitals Vitals: Vital Signs - 24 hr 10/17/20 16:00 Temperature 37.0 C Heart Rate 100 Respiratory 17 Rate Blood Pressure 122/70 O2 Saturation 97 Oxygen O2 Source Room air PD MEDICAL DECISION MAKING - ED course ED course: 25-year-old woman presents with persistent left hip pain after twisting it this morning. Will obtain x-rays and reevaluate. She is driving and unable to arrange a ride so I will give her a prescription for Robaxin pending normal x- ray. Departure - Departure Disposition: 01 Home, Self Care Clinical Impression: Muscle spasm, Hip pain, left Condition: Good Instructions: ED Strain Muscle Ext Prescriptions: Methocarbamol [Robaxin-750] 750 mg PO Q6H PRN #10 tablet PRN Reason: Pain Comments: You are seen in the emergency department for hip pain. Because you did not feel better with ibuprofen and Toradol, we are prescribing a short course of muscle relaxer to relieve your pain. Make sure that you get as much rest as possible and ask for additional help you can with your children. Return to the emergency department if your symptoms do not improve or if you have any other concerns.Follow-up with your primary doctor
[2020-10-17] MEDS ORDERED: methocarbamoL 500 MG TABLET PO STA (17:44)
--- NOTE | 2020-10-17 18:15 | XRAY Report ---
PROCEDURE: Hip w/Pelvis 2-3V LT INDICATIONS: L hip pain TECHNIQUE: AP pelvis with crosstable lateral view of the left hip. COMPARISON: None. FINDINGS: Bones: No acute fractures or dislocations. Pelvic ring appears intact. No suspicious bony lesions. Soft tissues: The visualized bowel gas pattern is normal. No suspicious soft tissue calcifications. IMPRESSION: No acute osseous abnormality. If there is clinical concern or persistent symptoms, addit ional imaging such as repeat radiographs or advanced imaging (e.g. CT, MRI) may be helpful for furthe r evaluation. Reviewed by: Zac Downey MD on 10/17/2020 5:13 PM VENUS Approved by: Zac Downey MD on 10/17/2020 5:13 PM AKWILLIAM Station ID: [id number]
[2020-10-17 18:44] VITALS: BP 114/72
== END 2020-10-17 18:43 | disposition home or self-care (01) ==
LOC: ED 15:54
DX: M62.838 Other muscle spasm (principal); M25.552 Pain in left hip; F17.200 Nicotine dependence, unspecified, uncomplicated
CPT/HCPCS: 96372; 99283; 99284

== ENCOUNTER 2020-10-18 23:03 | Emergency (ER) | payer MEDICAID ==
[2020-10-19] MEDS ORDERED: DEXAMETHASONE 10 MG/ML VIAL PO STA (01:18)
[2020-10-19] MEDS ORDERED: CHERRY SYRUP 10 ML UDC PO ONE (01:18)
--- NOTE | 2020-10-19 01:39 | ED Physician Documentation ---
PD HPI LOWER EXT INJURY - Stated complaint Stated Complaint: LT HIP PX - Chief complaint Chief Complaint: Ext Problem - History obtained from History obtained from: Patient, Friend - History of Present Illness PD HPI LOW EXT INJURY LOCATION: Left, Hip, Upper leg Type of injury: Fall, Twist Where injury occurred: Home Timing - onset: How many days ago (3) Timing - duration: Days Timing - details: Abrupt onset, Still present Improved by: Rest, Immobilization Worsened by: Moving, Palpating Associated symptoms: No: Weakness, Numbness, Tingling Contributing factors: No: Anticoagulated Similar symptoms before: Has not had sx before Recently seen: Emergency Dept - Additional information Additional information: 25-year-old previously well female has indicated that she was in her home she was bent over and her baby began to fall off of the bed and she stood up suddenly and twisted and when she did this she had a sharp severe pain going from her left hip to her left knee and she collapsed. Since that time she has had pain in that area continuously and with any movement. She was seen here earlier by Dr. Fenton and had a second visit was prescribed some muscle relaxant neither of these treatments seem to be about much help to the patient. She has come now to the emergency department for further treatment. An x-ray was obtained on the second visit. 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 : None HEENT: None Psych: ADD/ADHD Musculoskeletal: None Derm: None - Past Surgical History Past Surgical History: No - Present Medications Home Medications: Ambulatory Orders Medication Instructions Recorded Confirmed Methocarbamol [Robaxin-750] 750 mg PO Q6H PRN #10 tablet 10/17/20 HYDROcod/ACETAM 5/325 [[place] 5/325] 1 - 2 tablet PO Q6H PRN #12 tablet 10/19/20 - Allergies Allergies/Adverse Reactions: Allergies Allergy/AdvReac Type Severity Reaction Status Date / Time No Known Drug Allergies Allergy Verified 10/17/20 16:00 - Social History Does the pt smoke?: Yes Smoking Status: Current every day smoker Does the pt drink ETOH?: No Does the pt have substance abuse?: Yes - Immunizations Immunizations are current?: Yes - POLST Patient has POLST: No PD ED PE NORMAL - Vitals Vital signs reviewed: Yes (hypertensive ) - General General: Alert and oriented X 3, No acute distress, Well developed/nourished - HEENT HEENT: Atraumatic, PERRL, EOMI - Respiratory Respiratory: No respiratory distress - Derm Derm: Normal color, Warm and dry, No rash - Extremities Extremities: No deformity, No edema, Other (minimal tenderness to the distal femur over the lateral aspect. Pain along the iliotibal band and into the groin. ) - Neuro Neuro: Alert and oriented X 3, hand knitter 2-12 intact, No motor deficit, No sensory deficit, Normal speech Eye Opening: Spontaneous Motor: Obeys Commands Verbal: Oriented GCS Score: 15 - Psych Psych: Normal mood, Normal affect Results - Vitals Vitals: Vital Signs - 24 hr 10/18/20 23:05 Temperature 36 C L Heart Rate 97 Respiratory 16 Rate Blood Pressure 146/75 H O2 Saturation 97 Oxygen O2 Source Room air PD MEDICAL DECISION MAKING - ED course Complexity details: considered differential, d/w patient ED course: 25-year-old female who has injured her left leg from a sudden change in posture several days ago has persistent and continued pain and this is her third visit to the emergency department today. She has 2 small children she is trying to take care of at home and she has a lot of pain associated with this musculoskeletal injury. She is administered dexamethasone here in the emergency department we will provide a short course of narcotic pain reliever. Departure - Departure Disposition: 01 Home, Self Care Clinical Impression: Strain of left hip and thigh Qualifiers: Encounter type: initial encounter Qualified Code(s): S76.012A - Strain of mus dianelys, fascia and tendon of left hip, initial encounter Condition: Stable Instructions: ED Strain Groin, ED Strain Muscle Ext Follow-Up: Alix Duarte MD [Primary Care Provider] - Prescriptions: HYDROcod/ACETAM 5/325 [[place] 5/325] 1 - 2 tablet PO Q6H PRN #12 tablet PRN Reason: Pain
[2020-10-19] MEDS ORDERED: HYDROcod/ACET 5/325 Prepack 4 PO STA (01:45)
[2020-10-19 02:05] VITALS: BP 134/94
== END 2020-10-19 02:03 | disposition home or self-care (01) ==
LOC: ED 23:03
DX: S76.012A Strain of muscle, fascia and tendon of left hip, initial encounter (principal); X50.1XXA Overexertion from prolonged static or awkward postures, initial encounter; Y93.F9 Activity, other caregiving; Y92.009 Unspecified place in unspecified non-institutional (private) residence as the place of occurrence of the external cause; F17.200 Nicotine dependence, unspecified, uncomplicated
CPT/HCPCS: 99282; 99284; A9270

== ENCOUNTER 2020-10-21 14:36 | Emergency (ER) | payer MEDICAID ==
--- NOTE | 2020-10-21 14:59 | ED Physician Documentation ---
History of Present Illness - Stated complaint Stated Complaint: HIP PX,NAUSEA - Chief complaint Chief Complaint: General - History obtained from History obtained from: Patient - Additonal information Additional information: About 5 days ago she had to react quickly because her son was about to roll off the bed. She sort of twisted funny and had sudden severe onset left hip pain in the left groin which has been persistent since. She was seen here and had negative x-rays. She tried some muscle relaxers which were unhelpful. 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 : None HEENT: None Psych: ADD/ADHD Musculoskeletal: None Derm: None - Past Surgical History Past Surgical History: No - Present Medications Home Medications: Ambulatory Orders Medication Instructions Recorded Confirmed Methocarbamol [Robaxin-750] 750 mg PO Q6H PRN #10 tablet 10/17/20 10/21/20 HYDROcod/ACETAM 5/325 [[place] 5/325] 1 - 2 tablet PO Q6H PRN #12 tablet 10/19/20 10/21/20 HYDROcod/ACETAM 5/325 [[place] 5/325] 1 - 2 tab PO Q6H PRN #15 tablet 10/21/20 Ondansetron Odt [Zofran] 4 mg TL Q6H PRN #10 tablet 10/21/20 - Allergies Allergies/Adverse Reactions: Allergies Allergy/AdvReac Type Severity Reaction Status Date / Time No Known Drug Allergies Allergy Verified 10/21/20 14:47 - Social History Does the pt smoke?: Yes Smoking Status: Current some day smoker Does the pt drink ETOH?: No Does the pt have substance abuse?: Yes Substance Use and Type: Marijuana - Immunizations Immunizations are current?: Yes - POLST Patient has POLST: No PD ED PE NORMAL - Vitals Vital signs reviewed: Yes - General General: Alert and oriented X 3, No acute distress - Extremities Extremities: Other (The left hip is nontender but she has exquisite pain with internal or external rotation of the left leg. No back tenderness.) - Neuro Neuro: Alert and oriented X 3, Normal speech Results - Vitals Vitals: Vital Signs - 24 hr 10/21/20 10/21/20 14:44 14:59 Temperature 36.5 C 36.3 C L Heart Rate 108 H 90 Respiratory 18 16 Rate Blood Pressure 136/82 H 133/69 H O2 Saturation 99 98 Oxygen O2 Source Room air PD MEDICAL DECISION MAKING - ED course ED course: Examination does suggest the problem is within the femoral acetabular joint. Previous x-rays reviewed and negative. Nothing in the history or physical to suggest infection. Her young age and good bone density as well as the ability to bear weight would suggest against occult fracture. My suspicion is she may have a labral tear. Discussed the work-up of this as an outpatient but needed some nausea medicine and this is provided. Departure - Departure Disposition: 01 Home, Self Care Clinical Impression: Hip pain, left Condition: Good Record reviewed to determine appropriate education?: Yes Prescriptions: HYDROcod/ACETAM 5/325 [[place] 5/325] 1 - 2 tab PO Q6H PRN #15 tablet PRN Reason: Pain Ondansetron Odt [Zofran] 4 mg TL Q6H PRN #10 tablet PRN Reason: Nausea / Vomiting Comments: As discussed, my suspicion is you may have a labral tear in your left hip. This is not something that can be diagnosed from the ED, talk with your doctor tomorrow about an MRI of the left hip. Return if worsening.
[2020-10-21 15:00] VITALS: BP 133/69
== END 2020-10-21 15:04 | disposition home or self-care (01) ==
LOC: ED 14:36
DX: M25.552 Pain in left hip (principal); X50.1XXA Overexertion from prolonged static or awkward postures, initial encounter; Y93.F9 Activity, other caregiving; F17.200 Nicotine dependence, unspecified, uncomplicated
CPT/HCPCS: 99281; 99282

== ENCOUNTER 2020-10-25 07:35 | Emergency (ER) | payer MEDICAID ==
[2020-10-25 07:41] VITALS: BP 137/70
--- NOTE | 2020-10-25 08:01 | ED Physician Documentation ---
PD HPI LOWER EXT INJURY - Stated complaint Stated Complaint: LT HIP PX - Chief complaint Chief Complaint: Ext Problem - History obtained from History obtained from: Patient - History of Present Illness PD HPI LOW EXT INJURY LOCATION: Left, Hip, Knee Type of injury: Twist Where injury occurred: Home Timing - onset: How many days ago (8) Timing - duration: Days (8) Timing - details: Abrupt onset, Still present Improved by: Rest, Immobilization Worsened by: Moving, Palpating Associated symptoms: No: Weakness, Numbness, Tingling, Swelling, Discolored Contributing factors: No: Anticoagulated Similar symptoms before: Diagnosis (labral tear) Recently seen: Emergency Dept - Additional information Additional information: 25-year-old female admitted sudden movement to catch her son from falling off the bed 8 days ago has had pain in her left hip since that radiates down to her left knee. She has pain with flexion and abduction of the hip. She has been into see us here in the emergency department she did get some pain relief with the narcotic had a side effect of nausea associated with that and has had improvement with Zofran. On her last visit she saw Dr. Hayes who recommended she get MRI for evaluation of a possible labral tear. This does seem to fit the patient's clinical condition fairly well and she has this MRI scheduled for Thursday. She has now run out of her pain medication and she indicates that she is having a very difficult time sleeping and that usually during the day she is able to manage her pain by positioning. 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 : None HEENT: None Psych: ADD/ADHD Musculoskeletal: None Derm: None - Past Surgical History Past Surgical History: No - Present Medications Home Medications: Ambulatory Orders Medication Instructions Recorded Confirmed Methocarbamol [Robaxin-750] 750 mg PO Q6H PRN #10 tablet 10/17/20 10/21/20 HYDROcod/ACETAM 5/325 [[place] 5/325] 1 - 2 tablet PO Q6H PRN #12 tablet 10/19/20 10/21/20 HYDROcod/ACETAM 5/325 [[place] 5/325] 1 - 2 tab PO Q6H PRN #15 tablet 10/21/20 Ondansetron Odt [Zofran] 4 mg TL Q6H PRN #10 tablet 10/21/20 HYDROcod/ACETAM 5/325 [[place] 5/325] 1 - 2 tablet PO Q6H PRN #14 tablet 10/25/20 Ondansetron Odt [Zofran] 4 mg TL Q6H PRN #10 tablet 10/25/20 - Allergies Allergies/Adverse Reactions: Allergies Allergy/AdvReac Type Severity Reaction Status Date / Time No Known Drug Allergies Allergy Verified 10/25/20 07:41 - Social History Does the pt smoke?: Yes Smoking Status: Current some day smoker Does the pt drink ETOH?: No Does the pt have substance abuse?: Yes - Immunizations Immunizations are current?: Yes - POLST Patient has POLST: No PD ED PE NORMAL - Vitals Vital signs reviewed: Yes (hypertensive ) - General General: Alert and oriented X 3, No acute distress, Well developed/nourished - HEENT HEENT: Atraumatic, PERRL, EOMI - Respiratory Respiratory: No respiratory distress - Derm Derm: Normal color, Warm and dry, No rash - Extremities Extremities: No deformity, No edema, Other (FADIR maneuvers were performed which elicits the pain the patient is having. ) - Neuro Neuro: department administrator 2-12 intact, No motor deficit, No sensory deficit, Normal speech Eye Opening: Spontaneous Motor: Obeys Commands Verbal: Oriented GCS Score: 15 - Psych Psych: Normal mood, Normal affect Results - Vitals Vitals: Vital Signs - 24 hr 10/25/20 07:39 Temperature 36.0 C L Heart Rate 98 Respiratory 16 Rate Blood Pressure 137/70 H O2 Saturation 100 Oxygen O2 Source Room air PD MEDICAL DECISION MAKING - ED course Complexity details: reviewed old records, considered differential, d/w patient ED course: 25-year-old female with left hip pain that she is unwilling able to get comfortable while sleeping at night has had success with the use of a narcotic pain reliever and not with use of anti-inflammatory or plain Tylenol. Today she is requesting refill of narcotic pain reliever and Zofran. She is still in the phase of acute pain and her request is appropriate.I have asked the patient to get all future narcotic prescriptions through her primary care doctor. Departure - Departure Disposition: Home, Self Care Clinical Impression: Strain of left hip and thigh Qualifiers: Encounter type: subsequent encounter Qualified Code(s): S76.012D - Strain of muscle, fascia and tendon of left hip, subsequent encounter; S76.912D - Strain of unspecified muscles, fascia and tendons at thigh level, left thigh, subsequent encounter Condition: Stable Instructions: Arthroscopy Hip Repair Labral Tear Follow-Up: Alix Duarte MD [Primary Care Provider] - Prescriptions: HYDROcod/ACETAM 5/325 [[place] 5/325] 1 - 2 tablet PO Q6H PRN #14 tablet PRN Reason: Pain Ondansetron Odt [Zofran] 4 mg TL Q6H PRN #10 tablet PRN Reason: Nausea / Vomiting Comments: Today this is the third prescription of pain medications you have have received for this same problem. Our policy in the emergency department is to not refill pain medications more than 3 times in a year for a particular problem. All of your future narcotic scripts for this condition should come from your primary care doctor. Today this is appropriate to use this type of medication. Talk to your primary care doctor about further pain medication as we are limited in what we are able to provide here. You will not be able to get a pain medication prescription in the future from the emergency department for this condition.
--- OUTSIDE RECORDS SUMMARY | 2020-10-31 00:25 | EXTERNAL MEDICAL SUMMARY RPT | Continuity of Care Document ---
:1995 Demographics Phone Unavailable Preferred Language Hungarian Marital Status Unknown Evangelical Affiliation Unknown Race Unknown Ethnic Group Unknown Author Organization [facility] Address [address] [place] [address] Phone Care Team Providers Name Role Phone Flora Unavailable Unavailable Problems date description facility [id number] Pain in left [facility] Social History date description facility [id number]
== END 2020-10-25 08:19 | disposition home or self-care (01) ==
LOC: ED 07:35
DX: S76.012A Strain of muscle, fascia and tendon of left hip, initial encounter (principal); S76.912A Strain of unspecified muscles, fascia and tendons at thigh level, left thigh, initial encounter; X50.1XXA Overexertion from prolonged static or awkward postures, initial encounter; Y93.F9 Activity, other caregiving; Y92.009 Unspecified place in unspecified non-institutional (private) residence as the place of occurrence of the external cause; F17.200 Nicotine dependence, unspecified, uncomplicated
CPT/HCPCS: 99282; 99284

== ENCOUNTER 2022-06-16 08:50 | Outpatient (CLI) | payer MEDICAID ==
--- NOTE | 2022-06-16 13:21 | Ultrasound Report ---
PROCEDURE: Pelvic w/Transvaginal INDICATIONS: IRREGULAR MENSES TECHNIQUE: Real-time scanning was performed of the pelvic organs, with image documentation. Additional endovagi nal scanning was necessary due to incomplete visualization of the adnexal and endometrial structures by transabdominal scanning. COMPARISON: None. FINDINGS: Uterus: Uterus is anteverted and retroflexed and normal in size at 8.7 x 6.7 x 5.5 cm. The myometri um is heterogeneous. The endometrium measures about 8 mm in combined thickness. An IUD is situated in appropriate position in the uterine fundus. Strings are seen in the lower uterine segment/cervix. Ovaries: The right ovary measures 4.6 x 2.9 x 1.7 cm, with a calculated ovarian volume of 12.0 cc. The left ovary measures 5.3 x 3.9 x 2.4 cm, with a calculated ovarian volume of 25.7 cc. The ovaries have a normal sonographic appearance. Less than 12 follicles can be seen in each ovary. No adnexal masses are seen. Other: No pathologic free abdominal or pelvic fluid. IMPRESSION: 1. IUD in satisfactory position. 2. Heterogeneous uterus raises the possibility of adenomyosis in the appropriate clinical scenario. Reviewed by: Ana Land MD on 06/16/2022 1:20 PM PST Approved by: Ana Land MD on 06/16/2022 1:20 PM PST Station ID: [id number]
== END 2022-06-16 08:51 | disposition home or self-care (01) ==
LOC: DI 08:50
PROVIDERS: ATTEND Obstetrics & Gynecology
DX: N92.6 Irregular menstruation, unspecified (principal); Z97.5 Presence of (intrauterine) contraceptive device

== ENCOUNTER 2022-12-17 21:24 | Emergency (ER) | payer MEDICAID ==
[2022-12-17] MEDS ORDERED: AMOX/CLAV 875 MG/125 MG TABLET PO STA (21:34)
[2022-12-17] MEDS ORDERED: HYDROcod/ACET 5/325 Prepack 4 PO STA (21:34)
--- NOTE | 2022-12-17 21:36 | ED Physician Documentation ---
PD HPI HEENT - Stated complaint Stated Complaint: R EAR PX, SORE THROAT - Chief complaint Chief Complaint: Heent - History obtained from History obtained from: Patient (Otherwise healthy 27-year-old woman has been sick for a couple of days with cough cold and sore throat and now severe right ear pain today. No fevers. 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 : None HEENT: None Psych: ADD/ADHD Musculoskeletal: None Derm: None - Past Surgical History Past Surgical History: No - Present Medications Home Medications: Ambulatory Orders Medication Instructions Recorded Confirmed Amox/Clav 875/125 [Augmentin] 1 each PO Q12H #20 tablet 12/17/22 HYDROcod/ACETAM 5/325 [[place] 5/325] 1 - 2 tab PO Q6H PRN #10 tablet 12/17/22 Ibuprofen [Motrin] 600 mg PO Q6H PRN #30 tab 12/17/22 - Allergies Allergies/Adverse Reactions: Allergies Allergy/AdvReac Type Severity Reaction Status Date / Time No Known Drug Allergies Allergy Verified 12/17/22 21:30 - Social History Does the pt smoke?: Yes Smoking Status: Current every day smoker Does the pt drink ETOH?: No Does the pt have substance abuse?: Yes - Immunizations Immunizations are current?: Yes - POLST Patient has POLST: No PD ED PE NORMAL - Vitals Vital signs reviewed: Yes - General General: Alert and oriented X 3, No acute distress - HEENT HEENT: Other (Severe right OM, red tonsillar pillars. Left TM normal) - Neck Neck: Supple, no meningeal sign, No bony TTP - Neuro Neuro: Alert and oriented X 3, Normal speech Results - Vitals Vitals: Vital Signs - 24 hr 12/17/22 21:26 Temperature 36.5 C Heart Rate 119 H Respiratory 18 Rate Blood Pressure 130/78 O2 Saturation 98 Oxygen O2 Source Room air Departure - Departure Disposition: 01 Home, Self Care Clinical Impression: Otitis media Qualifiers: Otitis media type: suppurative Chronicity: acute Laterality: right Recurrence: recurrent Spontaneous tympanic membrane rupture: without spontaneous rupture Qualified Code(s): H66.004 - Acute suppurative otitis media without spontaneous rupture of ear drum, recurrent, right ear Condition: Good Record reviewed to determine appropriate education?: Yes Instructions: ED Otitis Media Acute Adult Prescriptions: Amox/Clav 875/125 [Augmentin] 1 each PO Q12H #20 tablet Ibuprofen [Motrin] 600 mg PO Q6H PRN #30 tab PRN Reason: Pain HYDROcod/ACETAM 5/325 [[place] 5/325] 1 - 2 tab PO Q6H PRN #10 tablet PRN Reason: Pain Comments: I sent your prescriptions electronically to [facility] in [place]. Follow-up with your doctor in about a week for recheck. Return for new or worsening symptoms. I am prescribing a short course of narcotic pain medication for you. These are potentially dangerous and addictive medications that should be used carefully. These medications may constipate you. Take an bwzj-zrq-rmwzkrl stool softener (docusate) twice daily with plenty of water while taking these medications. If you go 24 hours without a bowel movement, take ypnf-rlg-unwoxus miralax, per package instructions. Do not drink or drive while taking these medications. If you received narcotic or sedating medications while in the emergency department, do not drive for 24 hours. Store this medication in a safe, secure place and out of reach of children. It is a violation of federal law to give or sell this medication to another person or to use in a manner other than prescribed. The ED will not refill narcotic prescriptions, including prescriptions lost or stolen. To dispose of unwanted medications: 1. [facility] at [address] in [place] has a medication drop box. They accept prescription medications (in pill form) Thursday through Thursday 9:00 a.m. to 5:00 p.m. 2. The [facility] accepts prescription medications (in pill form only) for disposal year round. Call for more information. 3. Contact the [facility] for the next [facility] sponsored prescription drug collection event. , [phone], or [phone]; Note that many narcotic pain relievers also contain Tylenol/acetaminophen. Please ensure that your total dose of acetaminophen from all sources does not exceed 3 g (3000 mg) per day.
[2022-12-17 21:49] VITALS: BP 122/70
== END 2022-12-17 21:48 | disposition home or self-care (01) ==
LOC: ED 21:24
DX: H66.004 Acute suppurative otitis media without spontaneous rupture of ear drum, recurrent, right ear (principal); F17.200 Nicotine dependence, unspecified, uncomplicated
CPT/HCPCS: 99282; 99283; A9270

== ENCOUNTER 2023-03-10 09:48 | Outpatient (CLI) | payer MEDICAID ==
--- NOTE | 2023-03-10 14:00 | XRAY Report ---
PROCEDURE: Chest 2 View X-Ray INDICATIONS: HX OF POSITIVE PPD TECHNIQUE: 2 views of the chest were acquired. COMPARISON: 04/30/2018 FINDINGS: Surgical changes and devices: None. Lungs and pleura: No pleural effusions or pneumothorax. Lungs are clear. Mediastinum: Mediastinal contours appear normal. Heart size is normal. Bones and chest wall: No suspicious bony lesions. Overlying soft tissues appear unremarkable. IMPRESSION: No acute cardiopulmonary process. No findings suspicious for active pulmonary tuberculosis. Reviewed by: Vincent Schmitt MD on 03/10/2023 1:59 PM PDT Approved by: Vincent Schmitt MD on 03/10/2023 1:59 PM PDT Station ID: [id number]
== END 2023-03-10 09:49 | disposition home or self-care (01) ==
LOC: DI 09:48
PROVIDERS: ATTEND Nurse Practitioner
DX: Z87.898 Personal history of other specified conditions (principal)

== ENCOUNTER 2023-03-16 13:23 | Outpatient (CLI) | payer MEDICAID | END 2023-03-16 13:24 | disposition home or self-care (01) | LOC: LAB.N 13:23 | PROVIDERS: ATTEND Nurse Practitioner | DX: Z87.898 Personal history of other specified conditions (principal) | CPT/HCPCS: 81599; 86480 ==

== ENCOUNTER 2023-09-04 14:20 | Emergency (ER) | payer MEDICAID ==
[2023-09-04] MEDS: PROPARACAINE 0.5% OPHTH DROPS 15 ML RIGHTEYE STA (14:40)
--- NOTE | 2023-09-04 15:03 | ED Physician Documentation ---
PD HPI OPHTHO - Stated complaint Stated Complaint: LT EYE BURN - Chief complaint Chief Complaint: Heent - History obtained from History obtained from: Patient - Additional information Additional information: Patient is a 28-year-old presenting for evaluation of injury to her left eye. Patient was getting ready to make a pasta sauce and had heated up some oil when a splatter went into her left eye. This occurred just about an hour ago. She did rinse the area out with water. She reports irritation to the left eye. Does not wear contacts or glasses.Denies any abnormal drainage. Denies pain to the eye. Review of Systems Eyes: reports: Irritation. 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 : None HEENT: None Psych: ADD/ADHD Musculoskeletal: None Derm: None - Past Surgical History Past Surgical History: No - Present Medications Home Medications: Ambulatory Orders Medication Instructions Recorded Confirmed Amox/Clav 875/125 [Augmentin] 1 each PO Q12H #20 tablet 12/17/22 HYDROcod/ACETAM 5/325 [[place] 5/325] 1 - 2 tab PO Q6H PRN #10 tablet 12/17/22 Ibuprofen [Motrin] 600 mg PO Q6H PRN #30 tab 12/17/22 Ofloxacin 0.3% Ophth Drops 2 drops LEFTEYE Q6HR 5 Days #5 ml 09/04/23 [Ocuflox 0.3% Ophth Drops] - Allergies Allergies/Adverse Reactions: Allergies Allergy/AdvReac Type Severity Reaction Status Date / Time No Known Drug Allergies Allergy Verified 09/04/23 14:28 - Social History Does the pt smoke?: Yes Smoking Status: Current every day smoker Does the pt drink ETOH?: No Does the pt have substance abuse?: Yes - Immunizations Immunizations are current?: Yes - POLST Patient has POLST: No PD ED PE NORMAL - General General: Alert and oriented X 3, No acute distress, Well developed/nourished - HEENT HEENT: Atraumatic, PERRL, EOMI, Moist mucous membranes, Pharynx benign - Respiratory Respiratory: No respiratory distress - Derm Derm: Warm and dry - Neuro Neuro: Normal speech PD ED PE EXPANDED - HEENT HEENT Visual: 1 - abrasion - Eyes Eyes: Visual acuity - see nn, PERRL, EOMI, Normal eyelids, No eyelid FB (everted), Injected conj/sclera (L eye), Corneal abrasion, Fluorescein uptake (L eye). No: Eyelid swelling, Eyelid erythema, Hyphema Results - Vitals Vitals: Vital Signs - 24 hr 09/04/23 09/04/23 14:28 15:10 Temperature 36.8 C Heart Rate 100 104 H Respiratory 16 18 Rate Blood Pressure 137/81 H 138/80 H O2 Saturation 98 99 Oxygen O2 Source Room air PD Medical Decision Making - ED course ED course: Patient presenting for evaluation of oil splattered to the left eye. Has mild conjunctival injection to the left eye. No signs of globe injury.No signs of o rbital or preseptal cellulitis. No signs of an increased intraocular pressure. On exam patient does have fluorescein uptake to the cornea consistent with injury. Given the location of this abrasion it does impact her vision and she reports that her vision is blurry Because of the defect.Will place patient on antibiotic drops. She does not wear contacts or glasses. Also instructed on need for close follow-up with ophthalmology As well as concerning symptoms to return for. Departure - Departure Disposition: 01 Home, Self Care Clinical Impression: Left cornea abrasion Condition: Stable Instructions: ED Eye Injury Corneal Abrasion Follow-Up: Matthew Koch MD [Provider Admit Priv/Credential] - Within 1 week Prescriptions: Ofloxacin 0.3% Ophth Drops [Ocuflox 0.3% Ophth Drops] 2 drops LEFTEYE Q6HR 5 Days #5 ml Comments: I have sent a prescription for an antibiotic to [facility] in [place]. I would recommend follow-up with an [facility] in the next week to make sure that your corneal injury heals. Return to the ER with any worsening symptoms. Forms: PCP List Discharge Date/Time: 09/04/23 15:10
[2023-09-04 15:17] VITALS: BP 138/80; O2SAT 99
== END 2023-09-04 15:10 | disposition home or self-care (01) ==
LOC: ED 14:20
DX: S05.02XA Injury of conjunctiva and corneal abrasion without foreign body, left eye, initial encounter (principal); X58.XXXA Exposure to other specified factors, initial encounter; Y93.G3 Activity, cooking and baking; F17.200 Nicotine dependence, unspecified, uncomplicated
CPT/HCPCS: 99282; 99283; J3490

== ENCOUNTER 2024-04-04 16:12 | Outpatient (CLI) | payer MEDICAID | END 2024-04-04 23:59 | disposition critical access hospital (66) | LOC: EMS 16:12 | PROVIDERS: ATTEND Emergency Medicine | DX: I49.9 Cardiac arrhythmia, unspecified (principal) | CPT/HCPCS: A0425; A0429; A0999 ==

== ENCOUNTER 2024-04-04 16:35 | Emergency (ER) | payer MEDICAID ==
--- NOTE | 2024-04-04 16:45 | ED Physician Documentation ---
PD HPI CHEST PAIN - Stated complaint Stated Complaint: RAPID HEART RATE - History obtained from History obtained from: Patient, EMS - Additional information Additional information: 28-year-old woman has had sinus tachycardia for quite some time and takes propranolol for it. This afternoon she was in her usual state of health and developed her usual rapid heart rate and feeling like her chest was squeezing. She took another propranolol and now it is better. She states no possibility of as her has been in [facility] for the last 10 years and is not sexually active. That said she wanted a test anyway. 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 : None HEENT: None Psych: ADD/ADHD Musculoskeletal: None Derm: None - Past Surgical History Past Surgical History: No - Present Medications Home Medications: Ambulatory Orders Medication Instructions Recorded Confirmed HYDROcod/ACETAM 5/325 [[place] 5/325] 1 - 2 tab PO Q6H PRN #10 tablet 12/17/22 04/04/24 Ibuprofen [Motrin] 600 mg PO Q6H PRN #30 tab 12/17/22 04/04/24 Propranolol [Inderal] 1 tab PO TID 04/04/24 04/04/24 Propranolol [Inderal] 10 mg PO TID #180 tablet 04/04/24 Sertraline [Zoloft] 25 mg PO DAILY 04/04/24 04/04/24 - Allergies Allergies/Adverse Reactions: Allergies Allergy/AdvReac Type Severity Reaction Status Date / Time No Known Drug Allergies Allergy Verified 09/04/23 14:28 - Social History Does the pt smoke?: Yes Smoking Status: Current every day smoker Does the pt drink ETOH?: No Does the pt have substance abuse?: Yes - Immunizations Immunizations are current?: Yes - POLST Patient has POLST: No PD ED PE NORMAL - Vitals Vital signs reviewed: Yes - General General: Alert and oriented X 3, No acute distress - Neck Neck: Supple, no meningeal sign - Cardiac Cardiac: RRR, No murmur - Respiratory Respiratory: No respiratory distress, Clear bilaterally - Abdomen Abdomen: Non tender - Extremities Extremities: No edema, No calf tenderness / cord - Neuro Neuro: Alert and oriented X 3 Results - Vitals Vitals: Vital Signs - 24 hr 04/04/24 04/04/24 16:46 17:03 Temperature 37.0 C Heart Rate 102 H Respiratory 18 Rate Blood Pressure 131/99 H Blood Pressure 131/99 H [Right] O2 Saturation 99 Oxygen O2 Source Room air - EKG (time done) 1705 EKG releavant findings:: EKG personally interpreted by author of this note. Relevant findings are: Rate: Rate (enter#) (96) Rhythm: NSR [place]ao: Normal Intervals: Normal AL QRS: Normal Ischemia: Normal ST segments Computer interpretation: Agree with computer - Labs Labs: Laboratory Tests 04/04/24 04/04/24 04/04/24 16:50 16:50 16:55 WBC 14.5 H RBC 4.08 L Hgb 13.0 Hct 39.5 MCV 96.8 MCH 31.9 H MCHC 32.9 RDW 11.8 L Plt Count 349 MPV 10.0 Neut # (Auto) 9.4 H Lymph # (Auto) 3.9 H [place] # (Auto) 0.8 Eos # (Auto) 0.2 Baso # (Auto) 0.1 Absolute Nucleated RBC 0.00 Nucleated RBC % 0.0 Sodium 137 Potassium 3.3 L Chloride 105 Carbon Dioxide 22 Anion Gap 10.0 BUN 15 Creatinine 0.8 Estimated GFR (MDRD) 85 L Glucose 109 H Calcium 9.1 Magnesium 1.7 Total Bilirubin 0.4 AST 15 ALT 17 Alkaline Phosphatase 48 Total Protein 6.7 Albumin 4.0 Globulin 2.7 Albumin/Globulin Ratio 1.5 TSH 4.82 Urine Color Urine Clarity Urine pH Ur Specific [place] Urine Protein Urine Glucose (UA) Urine Ketones Urine Occult Blood Urine Nitrite Urine Bilirubin Urine Urobilinogen Ur Leukocyte Esterase Ur Microscopic Review Urine Culture Comments Urine HCG, Qual Urine Opiates Screen NEGATIVE Ur Buprenorphine Scrn NEGATIVE Ur Oxycodone Screen NEGATIVE Urine Methadone Screen NEGATIVE Ur Barbiturates Screen NEGATIVE Ur Tricyclics Screen NEGATIVE Ur Phencyclidine Scrn NEGATIVE Ur Amphetamine Screen NEGATIVE U Methamphetamines Scrn NEGATIVE U Benzodiazepines Scrn NEGATIVE Urine Cocaine Screen NEGATIVE U Cannabinoids Screen POSITIVE H Ur Drug Screen Comment CUTOFF CONC BELOW: 04/04/24 16:55 WBC RBC Hgb Hct MCV MCH MCHC RDW Plt Count MPV Neut # (Auto) Lymph # (Auto) [place] # (Auto) Eos # (Auto) Baso # (Auto) Absolute Nucleated RBC Nucleated RBC % Sodium Potassium Chloride Carbon Dioxide Anion Gap BUN Creatinine Estimated GFR (MDRD) Glucose Calcium Magnesium Total Bilirubin AST ALT Alkaline Phosphatase Total Protein Albumin Globulin Albumin/Globulin Ratio TSH Urine Color YELLOW Urine Clarity CLEAR Urine pH 6.0 Ur Specific [place] 1.025 Urine Protein NEGATIVE Urine Glucose (UA) NEGATIVE Urine Ketones NEGATIVE Urine Occult Blood NEGATIVE Urine Nitrite NEGATIVE Urine Bilirubin NEGATIVE Urine Urobilinogen 0.2 (NORMAL) Ur Leukocyte Esterase NEGATIVE Ur Microscopic Review NOT INDICATED Urine Culture Comments NOT INDICATED Urine HCG, Qual NEGATIVE Urine Opiates Screen Ur Buprenorphine Scrn Ur Oxycodone Screen Urine Methadone Screen Ur Barbiturates Screen Ur Tricyclics Screen Ur Phencyclidine Scrn Ur Amphetamine Screen U Methamphetamines Scrn U Benzodiazepines Scrn Urine Cocaine Screen U Cannabinoids Screen Ur Drug Screen Comment PD Medical Decision Making - ED course ED course: She presents with rapid palpitations, sinus tachycardia prehospital, resolving here. She felt dehydrated and felt better after IV fluids. Workup demonstrates mild nonspecific leukocytosis, mild hypokalemia, normal urinalysis, negative testing, and drug screen negative save cannabinoids. She feels like the problem is that she should have her propranolol scheduled and is only taking it as needed now so refill was given so that she would not run out early. Mild hypokalemia was treated with an oral dose here. Departure - Departure Disposition: 01 Home, Self Care Clinical Impression: Palpitations, Inappropriate sinus tachycardia Condition: Stable Record reviewed to determine appropriate education?: Yes Instructions: ED Palpitations Prescriptions: Propranolol [Inderal] 10 mg PO TID #180 tablet Comments: I sent your prescription electronically to the [facility] [place]. As discussed were going to go up on your propranolol to a scheduled dose of 3 times a day thinking that might work better for you. The only abnormal finding was a mildly low potassium level for which you received a dose here. Drink ple nty of fluids.
[2024-04-04 16:54] LABS: BASOPHILS # (AUTO) 0.1 10^3/uL (0.0-0.1); BASOPHILS % (AUTO) 0.3 %; EOSINOPHILS # (AUTO) 0.2 10^3/uL (0.0-0.7); EOSINOPHILS % (AUTO) 1.4 %; HCT - HEMATOCRIT 39.5 % (37.0-47.0); LYMPHOCYTES # (AUTO) 3.9 10^3/uL (1.5-3.5); LYMPHOCYTES % (AUTO) 26.9 %; MEAN CORPUSCULAR HEMOGLOBIN 31.9 pg (27.0-31.0); MEAN CORPUSCULAR HGB CONC 32.9 g/dL (32.0-36.0); MEAN CORPUSCULAR VOLUME 96.8 fL (81.0-99.0); MONOCYTES # (AUTO) 0.8 10^3/uL (0.0-1.0); MONOCYTES % (AUTO) 5.7 %; NEUTROPHILS # (AUTO) 9.4 10^3/uL (1.5-6.6); NEUTROPHILS % (AUTO) 65.2 %; PLT - PLATELET COUNT 349 10^3/uL (130-450); RED BLOOD COUNT 4.08 10^6/uL (4.20-5.40); RED CELL DISTRIBUTION WIDTH 11.8 % (12.0-15.0); WHITE BLOOD COUNT 14.5 x10^3/uL (4.8-10.8)
[2024-04-04 17:14] LABS: BILIRUBIN,URINE NEGATIVE (NEGATIVE); GLUCOSE, URINE (UA) NEGATIVE (NEGATIVE); KETONES,URINE (UA) NEGATIVE (NEGATIVE); LEUKOCYTE ESTERASE, URINE NEGATIVE (NEGATIVE); NITRITE,URINE NEGATIVE (NEGATIVE); OCCULT BLOOD,URINE NEGATIVE (NEGATIVE); PROTEIN,URINE NEGATIVE (NEGATIVE); UROBILINOGEN,URINE 0.2 (NORMAL) E.U./dL (NORMAL)
[2024-04-04 17:18] LABS: CLARITY,URINE CLEAR (CLEAR); HCG UR QUAL NEGATIVE
[2024-04-04 17:23] LABS: AMPHETAMINE SCREEN,URINE NEGATIVE (NEGATIVE); BARBITURATE SCREEN,UR NEGATIVE (NEGATIVE); BENZODIAZEPINES SCREEN, URINE NEGATIVE (NEGATIVE); BUPRENORPHINE SCREEN, URINE NEGATIVE (NEGATIVE); COCAINE SCREEN URINE NEGATIVE (NEGATIVE); METHADONE SCREEN, URINE NEGATIVE (NEGATIVE); METHAMPHETAMINES SCREEN, URINE NEGATIVE (NEGATIVE); OPIATE SCREEN, URINE NEGATIVE (NEGATIVE); OXYCODONE SCREEN, URINE NEGATIVE (NEGATIVE); THC CANNABINOID SCREEN, URINE POSITIVE (NEGATIVE); TRICYCLIC ANTIDEPRESSANT,URINE NEGATIVE (NEGATIVE)
[2024-04-04 17:25] LABS: THYROID STIMULATING HORMONE 4.82 uIU/mL (0.34-5.60)
[2024-04-04] MEDS: SODIUM CHLORIDE 0.9% 1,000 ML IV STA (17:25)
[2024-04-04 17:53] LABS: MAGNESIUM 1.7 mg/dL (1.7-2.3)
[2024-04-04 17:59] LABS: ALBUMIN/GLOBULIN RATIO 1.5 (1.0-2.2); BILIRUBIN,TOTAL 0.4 mg/dL (0.2-1.0); CALCIUM 9.1 mg/dL (8.5-10.3); CREATININE 0.8 mg/dL (0.6-1.3); POTASSIUM 3.3 mmol/L (3.5-4.5); TOTAL PROTEIN 6.7 g/dL (6.4-8.9)
[2024-04-04] MEDS: POTASSIUM BICARB 25 MEQ TABLET PO STA (18:17)
[2024-04-04 18:28] VITALS: BP 124/86; O2SAT 98
== END 2024-04-04 18:25 | disposition home or self-care (01) ==
LOC: EDUNIT# → ED 16:35
DX: R00.2 Palpitations (principal); R00.0 Tachycardia, unspecified; E87.6 Hypokalemia; F17.200 Nicotine dependence, unspecified, uncomplicated
CPT/HCPCS: 36415; 80053; 80306; 81003; 81025; 83735; 84443; 85025; 93005; 99284; A9270; 81001; 87086

== ENCOUNTER 2024-04-21 08:40 | Outpatient (CLI) | payer MEDICAID ==
[2024-04-21 11:34] LABS: BASOPHILS # (AUTO) 0.1 10^3/uL (0.0-0.1); BASOPHILS % (AUTO) 0.4 %; EOSINOPHILS # (AUTO) 0.2 10^3/uL (0.0-0.7); EOSINOPHILS % (AUTO) 1.8 %; HCT - HEMATOCRIT 45.8 % (37.0-47.0); HGB - HEMOGLOBIN 15.3 g/dL (12.0-16.0); LYMPHOCYTES # (AUTO) 3.6 10^3/uL (1.5-3.5); MEAN CORPUSCULAR HEMOGLOBIN 31.8 pg (27.0-31.0); MEAN CORPUSCULAR HGB CONC 33.4 g/dL (32.0-36.0); MEAN CORPUSCULAR VOLUME 95.2 fL (81.0-99.0); MEAN PLATELET VOLUME 10.7 fL (7.9-10.8); MONOCYTES # (AUTO) 0.6 10^3/uL (0.0-1.0); MONOCYTES % (AUTO) 5.2 %; NEUTROPHILS # (AUTO) 6.7 10^3/uL (1.5-6.6); NEUTROPHILS % (AUTO) 60.4 %; PLT - PLATELET COUNT 388 10^3/uL (130-450); RED BLOOD COUNT 4.81 10^6/uL (4.20-5.40); WHITE BLOOD COUNT 11.1 x10^3/uL (4.8-10.8)
[2024-04-21 11:36] LABS: BILIRUBIN,URINE NEGATIVE (NEGATIVE); GLUCOSE, URINE (UA) NEGATIVE (NEGATIVE); KETONES,URINE (UA) 15 mg/dL (NEGATIVE); LEUKOCYTE ESTERASE, URINE NEGATIVE (NEGATIVE); NITRITE,URINE NEGATIVE (NEGATIVE); OCCULT BLOOD,URINE NEGATIVE (NEGATIVE); PH,URINE 5.5 PH (5.0-7.5); PROTEIN,URINE NEGATIVE (NEGATIVE); UROBILINOGEN,URINE 0.2 (NORMAL) E.U./dL (NORMAL)
[2024-04-21 11:39] LABS: CLARITY,URINE CLEAR (CLEAR)
[2024-04-21 11:45] LABS: BACTERIA,URINE Few /HPF (None Seen); RBC,URINE 0-5 /HPF (0-5); SQUAMOUS EPITHELIAL CELL,UR MOD Squamous (<= Few); WBC,URINE 0-3 /HPF (0-5)
[2024-04-21 12:06] LABS: THYROID STIMULATING HORMONE 2.71 uIU/mL (0.34-5.60)
[2024-04-21 12:20] LABS: ALBUMIN 4.9 g/dL (3.2-5.5); ALBUMIN/GLOBULIN RATIO 1.7 (1.0-2.2); BILIRUBIN,TOTAL 0.9 mg/dL (0.2-1.0); CREATININE 0.7 mg/dL (0.6-1.3); TOTAL PROTEIN 7.8 g/dL (6.4-8.9)
== END 2024-04-21 08:41 | disposition home or self-care (01) ==
LOC: LAB.N 08:40
PROVIDERS: ATTEND Nurse Practitioner
DX: E87.6 Hypokalemia (principal); Z51.81 Encounter for therapeutic drug level monitoring; D72.829 Elevated white blood cell count, unspecified; R00.2 Palpitations
CPT/HCPCS: 36415; 80053; 81001; 84443; 85025; 87086